=== PATIENT | male | born 1955 | race Caucasian/White ===

== ENCOUNTER → 2024-02-08 | Outpatient (CLI) | payer OTHER, SELFPAY ==
--- NOTE | 2024-02-08 07:13 | ECHOCS_ITS ---
Reason For Study: HTN Procedure This was a 2D Doppler, Color Flow transthoracic echocardiogram. The study was technically difficult. Contrast injection was performed. Exam performed in department. Left Ventricle Normal LV size. Left ventricular systolic function is normal. The left ventricular ejection fraction is 70 %. Stage 1 diastolic dysfunction. No regional wall motion abnormalities noted. Right Ventricle Normal RV size. Normal systolic function. Atria Normal left atrium. Normal right atrium. Mitral Valve Normal mitral valve. Tricuspid Valve Normal tricuspid valve. Aortic Valve Trisinus/trileaflet aortic valve. Pulmonic Valve Normal pulmonic valve. Great Vessels Normal aortic root. The pulmonary artery is normal size. Normal inferior vena cava. Pericardium/Pleural No pericardial effusion. Medication Diluted definity 1ml given slow IV push to enhance endocardial definition. Performed a rapid injection of agitated mix of 9 cc saline and 1cc air to assess for atrial septal defect. MMode/2D Measurements & Calculations LVIDd: 4.6 cm IVSd: 1.1 cm LVOT diam: 1.9 cm LVIDs: 3.1 cm LVPWd: 1.1 cm RVDd: 3.4 cm FS: 33.0 % LVOT area: 2.8 cm2 Ao root diam: 3.8 cm LAV(MOD-bp): 53.4 ml LVAd ap4: 38.4 cm2 LAV(MOD-bp) Indexed: 28.0 ml/m2 LVLd ap4: 9.2 cm LAV(MOD-sp2): 57.1 ml EDV(MOD-sp4): 133.4 ml LAV(MOD-sp4): 44.8 ml EDV(sp4-el): 135.9 ml LVAs ap4: 18.6 cm2 LVLs ap4: 7.4 cm ESV(MOD-sp4): 39.4 ml ESV(sp4-el): 39.5 ml EF(MOD-sp4): 70.4 % EF(sp4-el): 70.9 % SV(MOD-sp4): 94.0 ml SV(sp4-el): 96.4 ml LA A4 area: 17.5 cm2 LA dimension(2D): 3.5 cm RA A4 area: 15.6 cm2 TAPSE: 2.0 cm Time Measurements MV dec time: 0.21 sec Doppler Measurements & Calculations MV E max keagan: 81.6 cm/sec Lat Peak E' Keagan: 13.4 cm/sec Med Peak E' Keagan: 11.1 cm/sec MV A max keagan: 94.3 cm/sec E/E' lat: 6.1 E/E' med: 7.3 MV E/A: 0.87 MV V2 max: 99.4 cm/sec MV dec slope: 387.8 cm/sec2 Ao V2 max: 195.5 cm/sec MV max P.9 mmHg Ao max P.3 mmHg MV V2 mean: 71.4 cm/sec Ao V2 mean: 135.3 cm/sec MV mean P.2 mmHg Ao mean P.3 mmHg MV V2 VTI: 32.3 cm Ao V2 VTI: 44.4 cm MVA(VTI): 2.6 cm2 AV (velocity ratio): 0.69 EVANGELINA(I,D): 1.9 cm2 EVANGELINA(V,D): 1.7 cm2 LV V1 max: 121.4 cm/sec SV(LVOT): 84.8 ml PA V2 max: 97.7 cm/sec LV V1 max P.9 mmHg PA V2 mean: 75.6 cm/sec LV V1 mean P.6 mmHg LV V1 mean: 90.8 cm/sec LV V1 VTI: 30.8 cm ECHO/Echo Complete W/ Contrast Interpretation Summary Normal LV size. Left ventricular systolic function is normal. The left ventricular ejection fraction is 70 %. Stage 1 diastolic dysfunction. Contrast injection was performed. Ordering Physician: Aditya Valadez Referring Physician: Aditya Valadez Performed By: Tarsha Browning RCS
--- NOTE | 2024-02-08 16:18 | STRESSREP_ITS ---
Stress Test Report Exercise myocardial perfusion stress test. 68-year-old man with a history of chest pain Stress protocol: Resting EKG demonstrates normal sinus rhythm with a rate of 65 bpm resting blood pressure is 140/72 mmHg. The patient exercised according to the regular [facility] protocol for a total duration of 8 minutes attaining a maximum heart rate of 144 bpm which was 94% of maximum predicted heart rate; the maximum workload was 10.1 metabolic equivalents. At rest there were no ST or T wave changes noted to suggest ischemia and at peak exercise upsloping ST changes only were noted which did not meet the criteria for ischemia. No clinical angina was noted the test was terminated due to the target heart rate being achieved/fatigue. The peak b lood pressure was 184/70 mmHg. Rate-pressure product was 25,500. Myocardial perfusion protocol. 14.1 mCi of technetium 99m sestamibi was injected at rest. The patient exercised according to regular [facility] protocol for total duration of 8 minutes and at peak exercise 43.8 mCi of technetium 99m sestamibi was injected stress images were obtained stress and rest images were reconstructed in comparing the short axis vertical long and horizontal long axis. Gated images were also obtained. Perfusion SPECT analysis: Review of the stress images demonstrate normal uptake of tracer noted in all areas of the myocardium. The resting images similarly demonstrate normal uptake of tracer noted in all areas of the myocardium. No areas of reversibility are noted to suggest ischemia no previous infarct was noted. Gated SPECT analysis: The gated ejection fraction is 73%. Conclusion: Normal exercise myocardial perfusion stress test at a high workload Preserved ejection fraction.
== END | disposition home or self-care (01) ==
LOC: CVS 07:10
PROVIDERS: PCP Nurse Practitioner Family; Referring Provider Internal Medicine Cardiovascular Disease; Visit Provider Internal Medicine Cardiovascular Disease
DX: I10 Essential (primary) hypertension (principal); R07.9 Chest pain, unspecified
CPT/HCPCS: 78452; 93017; 93306; A9500; Q9957; A4216; C8929

== ENCOUNTER 2024-02-11 07:07 | Outpatient (CLI) | payer OTHER, SELFPAY ==
--- NOTE | 2024-02-11 07:12 | CT_ITS ---
STUDY: CT CHEST T ABDOMEN WITHOUT CONTRAST REASON FOR EXAM: Male, 68 years old. Mixed hyperlipidemia RADIATION DOSAGE (If Supplied By Facility): CTDIvol = ( 12.19 ) mGy, DLP = ( 243.79 ) mGycm TECHNIQUE: Transaxial imaging was performed without the administration of intravenous contrast material. Cardiac over read examination. Individualized dose optimization techniques were used for this CT. COMPARISON: No relevant priors. FINDINGS: CHEST The lungs are normal. There is no demonstrated pleural abnormality. There are calcifications of the coronary arteries. There are small lymph nodes within the mediastinum, which are normal in size and morphology most compatible with reactive lymph hyperplasia. Normal hilar regions. Normal unenhanced pulmonary arteries. Normal aorta arch and descending thoracic aorta. There are mild degenerative changes of the thoracic spine. There is no demonstrated abnormality of the visualized upper abdomen. CT/Limited Chest CT Cardiac Only IMPRESSION: Coronary artery calcification. Small benign-appearing mediastinal lymph nodes. Electronically Signed: Anton Roland MD at 9:32 EDT ,
--- OUTSIDE RECORDS SUMMARY | 2024-02-11 07:12 | XMS RPT_ITS | CCD ---
Author Organization [facility] Care Team Providers Care Industrial Robotics Mechanic Name Role Phone Micky Loaiza Unavailable Unavailable Micky Loaiza Unavailable Unavailable Bev Arnold Unavailable Unavailable Gutierrez, Manisha Damon Unavailable Unavailable Bev Arnold Unavailable Unavailable Gutierrez, Manisha Damon Unavailable Unavailable Gutierrez, Manisha Damon Unavailable Unavailable Gutierrez, Manisha Damon Unavailable Unavailable Bev Arnold Unavailable Unavailable HellingerAdelita Admitting Unavailable HellingAdelita howard Attending Unavailable Bev Arnold Primary Care Unavailable Bev Arnold Admitting Unavailable Bev Arnold Attending Unavailable Bev Arnold Primary Care Unavailable Adelita Priest Admitting Unavailable HellingAdelita howard Attending Unavailable Bev Arnold Primary Care Unavailable MoomawDong Admitting Unavailable MoomawUgoDong Attending Unavailable Bev Arnold Primary Care Unavailable GutierrezManisha Admitting Unavailable GutierrezManisha Attending Unavailable Bev Arnold Primary Care Unavailable RASTAFARIAN UROLOGY PROCEDURE , [id number] Unava ilable Unavailable Manisha Gutierrez II Unavailable Unavailable Unavailable Unavailable Unavailable Unavailable Primary Care Provider Adelita Hammonds CNP Primary Care Provider Adelita Priest CNP Unavailable Adelita Priest Unavailable Unavailable Unavailable Unavailable Unavailable Ms. Adelita Priest Primary Care Unavail able Obed ANGLIN, Dr. Manisha Tidwell Attending UnavaADELITA Pichardo Primary Care Unavailable DANA DURBIN Attending Unavailab MD MANISHA Weston Referring UnavailSAPNA Acosta Primary Care Unavail able MD MANISHA GUTIERREZ Attending Unavailabl e HELLINGER, SAPNA ADELITA HAWKINS Primary Care Unavail able Alfred, Dr. Micky West Attending Unavail able Alfred, Dr. Micky West Referring Unavail able HELLINGER, SAPNA ADELITA NEW Primary Care Unavail able HELLINGER, SITE ACQUISITION MANAGER ADELITA HAWKINS Referring Unavail able Simon, Dr. Micky West Attending Unavail able Hellinger SAPNAAdelita Mata Primary Care Provider Hellinger SAPNAAdelita Mata Unavailable CEM ADELTIA L. Primary Care Unavailable DURBIN, JAGPRIT PINEDA Referring Unavailab le DURBIN, JAGPRIT PINEDA Attending Unavailab le SKYLARER ADELITA Mata Attending Unavailable RICLINGER ADELITA Mata Primary Care Unavailable [facility] ADELITA Mata Referring Unavailable [facility] Primary Care Unavailable VIRGINIA SIMMONS Attending Unava ilable VIRGINIA SIMMONS Admitting Unava ilable Unavailable Primary Care Provider Unavailabl e [facility] Adelita Raul Primary Care Provide r [facility]elling[facility] Adelita Raul Primary Care Provide r Hellinger [employer] [facility] Adelita [facility] Primary Care Provider ODELL ORDAZ II Attending Unavailabl e CEM FANNIE NEW Primary Care Unavailable IMMANUEL ORDAZ Referring Unavailabl e IMMANUEL ORDAZ Attending Unavailabl e GRANT HOSPITALLINGFANNIE Primary Care Unavailable ODELL ORDAZ II Attending Unavailabl e RUI MCKEON Attending Unavailable BEV OMRRIS Referring Unavailable HELLINGERADELITA Primary Care Unavailable RUI MCKEON Referring Unavailable GRANT HOSPITALLINGERADELITA Primary Care Unavailable TINO PAYAN Attending Unavailable CHRISTOPH BERRY Referring Unavailable CHRISTOPH BERRY Attending Unavailable HELLINGER ADELITA Primary Care Unavailable GRANT HOSPITALLINGER, ADELITA L Primary Care Unavailable HELLINGER, ADELITA L Primary Care Unavailable MANISHA GUTIERREZ Referring Unavailable HELLINGER, ADELITA Primary Care Unavailable HELLINGER, ADELITA L Primary Care Unavailable CASEY CAMERON Attending Unavailable MANISHA GUTIERREZ Attending Unavailable ADELITA PRIEST Primary Care Unavailable MANISHA GUTIERREZ Attending Unavailable ADELITA PRIEST Primary Care Unavailable Adelita Priest CNP Primary Care Provider Adelita Priest CNP Unavailable Fatoumata Ramos MD Unavailable FATOUMATA RAMOS Attending Unavailable ADELITA PRIEST Referring Unavailable ADELITA PRIEST Primary Care Unavailable ADELITA PRIEST Admitting Unavailable Allergies Allergy Classification Reported Allergen(s) Allergy Type Date of Onset Reaction(s) Facility (20 sources) Penicillins; Translations: [penicillins] Propensity to adverse reactions to drug (disorder) 5 [facility] (18 sources) Cephalexin; Translations: [cephalexin] Drug Allergy 4 [facility] (4 sources) Penicillin; Translations: [PENICILLIN] Drug Allergy 6 [facility] (2 sources) Polymyxin B / Trimethoprim; Translations: [POLYMYXIN B SULF-TRIMETHOPR IM] Drug Allergy 4 Other: See [facility] Medications Current Medications Medication Drug Class(es) Dates Sig (Normalized) Sig (Original) [id number] 200 actuat albuterol 0.09 mg/actuat metered dose inhaler (20 sources) beta2-Adrenergic Agonist take 1 puff(s) by inhalation every six hours as needed for wheezing albuterol 90 mcg/actuation inhaler Inhale 1 (one) puff every 6 (six) hours as needed for wheezing . Active Albuterol Sulfat e HFA 108 (90 Base) MCG/ACT Inhalation Aerosol Solution Quantity: 0 Refills: 0 Ordered: 25-May-2019 DO Active Albuterol Sulfat e HFA 108 (90 Base) MCG/ACT Inhalation Aerosol Solution Quantity: 0 Refills: 0 Ordered: 25-May-2019 DO Active atorvastatin 10 mg oral tablet (20 sources) HMG-CoA Reductase Inhibitor take 1 tablet by mouth once daily atorvastatin (LIPITOR) 10 MG tablet Take 1 (one) tablet (10 mg total) by mouth daily . Active ATORVASTATIN SHANICE CIUM (ATORVASTATIN ORAL) Take by mouth. 0 Active Atorvastatin Shanice cium TABS Quantity: 0 Refills: 0 Ordered: 25-May-2019 DO Active Atorvastatin Shanice cium TABS Refills: 0 Active Comment on above: Take by mouth. cetirizine hydrochloride 10 mg oral tablet (7 sources) Histamine-1 Receptor Antagonist cetirizine (ZYRTEC) 10 MG tablet Take by mouth daily . Active CETIRIZINE HCL ( ZYRTEC ORAL) Take by mouth. 0 Active Comment on above: Take by mouth. dexamethasone 1 mg/ml / tobramycin 3 mg/ml ophthalmic suspension (1 source) Aminoglycoside Antibacterial, Corticosteroid Start: 09-30-19 End: 10-07-19 take 1 drop(s) into the eye(s) four times daily tobramycin-dexAMETH asone (TOBRADEX) 0.3-0.1 % ophthalmic suspension Use 1 Drop in both eyes four times daily for 7 days. 5 mL 0 09/30/2023 10/07/2023 Active fluticasone propionate 0.05 mg/actuat metered dose nasal spray (13 sources) Corticosteroid take 2 spray(s) nasal route once daily fluticasone propionate (FLONASE) 50 mcg/actuation nasal spray Instill 2 (two) sprays into each nostril daily . Active take 1 spray(s) nasal route once daily fluticasone (FLONASE) 50 mcg/actuation nasal spray Use 1 [place] in each nostril once daily. 0 Active fluticasone 50 M CG/ACT Suspension nasal spray 2 sprays by Nasal route daily. Active Comment on above: Use 1 [place] in each nostril once daily. hydroCHLOROthiazide 25 mg oral tablet (1 source) Thiazide Diuretic Start: 2023 take 1 tablet by mouth once daily hydroCHLOROthiazide (HYDRODIURIL) 25 MG tablet Take 1 (one) tablet (25 mg total) by mouth daily . 01/20/2024 Active lisinopril 20 mg oral tablet (20 sources) Angiotensin Converting Enzyme Inhibitor Start: 2023 lisinopril 20 mg tablet LISINOPRIL ORAL Take by mouth . Active LISINOPRIL ORAL Take by mouth. 0 Active Lisinopril TABS Quantity: 0 Refills: 0 Ordered: 25-May-2019 DO Active LISINOPRIL ORAL Take by mouth . 0 Active Lisinopril TABS Refills: 0 Active Comment on above: Take by mouth. magnesium citrate 45 mg / magnesium oxide 45 mg / potassium citrate 49.5 mg / pyridoxine hydrochloride 3.75 mg extended release oral tablet (1 source) vit B6-mag cit,oxid-potass cit (Theralith XR) 3.75-45-45-49.5 mg TbER Take by mouth 2 (two) times a day . Active methylPREDNISolone (1 source) Corticosteroid Start : 01-24 End: 01-31 methylPREDNISolone (MEDROL DOSEPACK) 4 mg tablet follow package directions . 21 tablet 0 01/24/2021 01/31/2021 Active Nutritional Supplements (TheraLith XR) tablet (2 sources) Nutritional Supp lements (TheraLith XR) tablet Take by mouth 2 times daily. Active sildenafil 100 mg oral tablet (1 source) Phosphodiesterase 5 Inhibitor Start : 08-18 take 1 tablet by mouth once daily at bedtime sildenafiL (VIAGRA) 100 MG tablet Take 1 (one) tablet (100 mg total) by mouth every night at bedtime . 08/19/2023 Active tropicamide 5 mg/ml ophthalmic solution (1 source) Anticholinergic Start : 04-22 End: 04-22 tropicamide 0.5 % 1 Drop (MYDRIACYL) vitB6/mag cit,ox/potassium cit (THERALITH XR ORAL) (4 sources) vitB6/mag cit,ox/potassium cit (THERALITH XR ORAL) Take by mouth . Active vitB6/mag cit,ox /potassium cit (THERALITH XR ORAL) Take by mouth . 0 Active Completed/Discontinued Medications Medication Drug Class(es) Dates Sig (Normalized) Sig (Original) betamethasone 0.5 mg/ml / clotrimazole 10 mg/ml topical cream (3 sources) Azole Antifungal, Corticosteroid Start: 06-08-2019 Clotrimazole-Bet amethasone 1-0.05 % External Cream APPLY SPARINGLY TO THE AFFECTED AREA(S) TWICE DAILY. Quantity: 45 Refills: 0 Ordered: 08-Jun-2019 Manisha Gutierrez II, MD Start : 08-Jun-2019 Active Start: 06-08-2019 Clotrimazole-B etamethasone 1-0.05 % External Cream APPLY SPARINGLY TO THE AFFECTED AREA(S) TWICE DAILY. Quantity: 45 Refills: 0 Manisha Gutierrez II, MD Start : 08-Jun-2019 Active 45 GM Tube ciprofloxacin 500 mg oral tablet (1 source) Quinolone Antimicrobial Start: 05-28-2020 take 1 tablet by mouth twice daily Ciprofloxacin HCl - 500 MG Oral Tablet Take 1 tablet twice daily Quantity: 6 Refills: 0 Manisha Gutierrez II, MD Start : 28-May-2020 Active doxycycline hyclate 100 mg oral tablet (2 sources) Tetracycline-class Drug Start: 08-12-2021 Doxycycline Hyclate 100 MG Oral Tablet Quantity: 14 Refills: 0 Ordered: 12-Aug-2021 DO Start : 12-Aug-2021 Complete Gadobutrol (GADAVIST) 1 MMOL/ML injection 1-30 mL (1 source) Start: 09-25-2023 End: 09-25-2023 1-30 mL, Intravenous, ONCE, 1 dose, On Thu09/25/23 at 1330, Extravasation Risk mupirocin 0.02 mg/mg topical ointment (2 sources) RNA Synthetase Inhibitor Antibacterial Start: 08-12-2021 Mupirocin 2 % External Ointment Quantity: 22 Refills: 0 Ordered: 12-Aug-2021 DO Start : 12-Aug-2021 Complete naproxen 500 mg oral tablet (2 sources) Nonsteroidal Anti-inflammatory Drug Start: 01-30-2021 Naproxen 500 MG Oral Tablet Quantity: 20 Refills: 0 Ordered: 30-Jan-2021 DO Start : 30-Jan-2021 Complete polymyxin b 36821 unt/ml / trimethoprim 1 mg/ml ophthalmic solution (2 sources) Dihydrofolate Reductase Inhibitor Antibacterial, Polymyxin-class Antibacterial Start: 09-28-2023 End: 10-05-2023 take 1 drop(s) into the eye(s) four times daily trimethoprim-polym yxin (POLYTRIM) 10,000 unit- 1 mg/mL ophthalmic solution Use 1 Drop in the left eye four times daily for 7 days. 10 mL 0 09/28/2023 09/30/2023 Discontinued (Clinical Decision) tamsulosin hydrochloride 0.4 mg oral capsule (2 sources) alpha-Adrenergic Topher Start: 07-09-2020 take 1 capsule by mouth at bedtime Tamsulosin HCl - 0.4 MG Oral Capsule TAKE 1 CAPSULE Bedtime Quantity: 30 Refills: 6 Ordered: 09-Jul-2020 Manisha Gutierrze II, MD Start : 09-Jul-2020 Active TheraLith XR Oral Tablet (1 source) TheraLith XR Ora l Tablet Refills: 0 Active TheraLith XR Oral Tablet (9 sources) TheraLith XR Ora l Tablet Quantity: 0 Refills: 0 Ordered: 08-Jun-2019 DO Active Problems Active Problems Problem Classification Problem Date Documented Date Episodic/Chronic Cataract (4 sources) Bilateral senile combined form cataracts of eyes; Translations: [Combined forms of age-related cataract, bilateral] Onset: 06-06-19 18 04-22-2023 Chronic Disorders of lipid metabolism (2 sources) Mixed hyperlipidemia; Translations: [Mixed hyperlipidemia] Onset: 11-27-19 Chronic Essential hypertension (4 sources) Essential (primary) hypertension; Translations: [Essential (primary) hypertension] Onset: 08-03-19 Chronic Genitourinary symptoms and ill-defined conditions (20 sources) Blood in urine; Translations: [Nocturia] Onset: 06-19-19 24 06-19-2023 Episodic Hyperplasia of prostate (16 sources) Benign prostatic hypertrophy without outflow obstruction; Translations: [Hypertrophy (benign) of prostate without urinary obstruction and other lower urinary tract symptom (LUTS)] Onset: 06-19-19 24 06-24-2023 Chronic Inflammation; infection of eye (except that caused by tuberculosis or sexually transmitteddisease) (3 sources) Keratoconjunctivitis sicca; Translations: [Keratoconjunctivitis sicca, not specified as Sjogren's, bilateral] Onset: 07-07-19 16 07-07-2015 Chronic Inflammation; infection of eye (except that caused by tuberculosis or sexually transmitteddisease) (2 sources) Conjunctivitis of left eye caused by bacteria; Translations: [Unspecified conjunctivitis] 09-28-2023 Episodic Miscellaneous mental health disorders (2 sources) Psychophysiologic insomnia; Translations: [Psychophysiologic insomnia] Onset: 11-27-19 Chronic Osteoarthritis (4 sources) [place] node; Translations: [Osteoarthrosis, generalized, hand] Chronic Other connective tissue disease (2 sources) Pain in left foot; Translations: [Pain in left foot] Episodic Other connective tissue disease (2 sources) Peroneal tendinitis of left lower limb; Translations: [Peroneal tendinitis, left leg] Episodic Other eye disorders (1 source) Bilateral vitreous floaters; Translations: [Other vitreous opacities, bilateral] 04-22-2023 Chronic Other male genital disorders (16 sources) Male erectile dysfunction, unspecified; Translations: [Erectile dysfunction] Onset: 06-19-1906-24-2023 Chronic Other male genital disorders (13 sources) Irritation of penis; Translations: [Other specified disorders of penis] Onset: 06-19-1906-19-2023 Chronic Other nutritional; endocrine; and metabolic disorders (3 sources) Obese class I; Translations: [Obesity, unspecified] Onset: 08-03-1908-03-2023 Chronic Other nutritional; endocrine; and metabolic disorders (2 sources) Obesity, unspecified; Translations: [Obesity, unspecified] Onset: 08-03-19 Chronic Other skin disorders (3 sources) Nailbed deformity; Translations: [Unspecified disease of nail] Episodic Phlebitis; thrombophlebitis and thromboembolism (6 sources) Phlebitis and thrombophlebitis of superficial vessels of right lower extremity; Translations: [Thrombophlebitis of superficial vein of right lower limb] Onset: 12-07-19 Episodic Residual codes; unclassified (1 source) FH: Cardiomyopathy; Translations: [Family history of ischemic heart disease and other diseases of the circulatory system] 09-08-2022 Episodic Residual codes; unclassified (4 sources) Family history of ischemic heart disease and other diseases of the circulatory system; Translations: [Family history of ischemic heart disease and other diseases of the circulatory system] Onset: 09-09-19 Episodic Residual codes; unclassified (1 source) FH: Cardiomyopathy; Translations: [Family history of ischemic heart disease and other diseases of the circulatory system] 09-25-2023 Episodic Residual codes; unclassified (2 sources) Localized edema; Translations: [Localized edema] Onset: 12-07-19 Episodic Past or Other Problems Problem Classification Problem Date Documented Da te Episodic/Chronic Blindness and vision defects (12 sources) Bilateral hyperopia of eyes; Translations: [Hypermetropia, bilateral] Onset: 07-07-2015 04-22-2023 Episodic Calculus of urinary tract (20 sources) History of calculus of kidney; Translations: [Kidney stone] Onset: 04-30-2022 Episodic Other and unspecified benign neoplasm (5 sources) Lipoma of trunk; Translations: [Benign lipomatous neoplasm of skin and subcutaneous tissue of trunk] Onset: 04-18-2021 Episodic Other and unspecified benign neoplasm (5 sources) Lipoma of abdominal wall; Translations: [Benign lipomatous neoplasm of skin and subcutaneous tissue of trunk] Onset: 04-18-2021 Episodic Other and unspecified benign neoplasm (5 sources) Lipoma of left lower limb; Translations: [Benign lipomatous neoplasm of skin and subcutaneous tissue of left leg] Onset: 04-18-2021 Episodic Other connective tissue disease (4 sources) Other specified soft tissue disorders; Translations: [Other specified soft tissue disorders] Onset: 05-23-2022 Episodic Other connective tissue disease (2 sources) Digital mucous cyst Onset: 05-02-2022 Episodic Other gastrointestinal disorders (4 sources) Disorder of flank; Translations: [Intra-abdominal and pelvic swelling, mass and lump, unspecified site] Onset: 04-18-2021 Episodic Other gastrointestinal disorders (2 sources) Abdominal mass; Translations: [Intra-abdominal and pelvic swelling, mass and lump, unspecified site] Onset: 04-18-2021 04-18-2021 Episodic Other screening for suspected conditions (not mental disorders or infectious disease) (18 sources) Raised prostate specific antigen; Translations: [Elevated prostate specific antigen [PSA]] Onset: 06-19-2023 06-24-2023 Episodic Unclassified (3 sources) Onset: 06-24-2023 06-24-2023 NEGATED: Highlighted row has not occurred!Residual codes; unclassified (3 sources) Disease Episodic Results Test Name Value Interpretation Reference Range Facility VASC US LOWER EXTREMITY VENO US DUPLEX RIGHTon 12-07-2023 VAS US LOWER EXTREMITY [place] [address] [phone], Vascular Lab Report VAS US LOWER EXTREMITY VENOUS DUPLEX RIGHT Patient Name: WALLY Rossi Physician: [id number] Grant Toro MD Study Date: 12/07/2023 Ordering Provider: [id number] CASEY CAMERON MRN/PID: [id number] Fellow: Technologist: Kelly Osei RVT/ Date of /Age: 1 1955 / 68 years Technologist 2: Gender: M Admission Status: Emergency Location Performed: [facility] Diagnosis/ICD: Localized (leg) edema-R60.0 CRITICAL RESULT Critical Result: superficial venous thrombosis of right calf GSV Notification called to Dr. Green on 12/07/2023 at 12:21:44 PM by Kelly Osei RVT. CONCLUSIONS: Right Lower Venous: No evidence of acute deep vein thrombus visualized in the right lower extremity. There is acute occlusive thrombosis visualized in the mid calf great saphenous. Left Lower Venous: The left common femoral vein demonstrates normal spontaneous and respirophasic flow. Imaging & Doppler Findings: Right Compress Thrombus Prox Calf GSV Yes None Mid Calf GSV No Acute Dist Calf GSV No Acute Right Compressible Thrombus Flow Distal External Iliac Yes None Spontaneous/Phasic CFV Yes None Spontaneous/Phasic PFV Yes None FV Proximal Yes None Spontaneous/Phasic FV Mid Yes None FV Distal Yes None Popliteal Yes None Spontaneous/Phasic Peroneal Yes None PTV Yes None [id number] Grant Toro MD Final Normal [facility] CBC panel Auto (Bld)on 11-29 Erythrocyte distribution width (RBC) [Ratio] 13.5 % Normal 11.5-14.5 [facility] Comment on above: Performed By: #### 5 8410-2 #### ELVIS LOPEZ ([id number]) [facility] ([facility]) [address] [place] [address] 83705 Hematocrit (Bld) [Volume fraction] 48.5 % Normal 41.0-52.0 [facility] Comment on above: Performed By: #### 5 8410-2 #### ELVIS LOPEZ ([id number]) [facility] ([facility]) [address] [place] [address] 37973 Hemoglobin (Bld) [Mass/Vol] 15.3 g/dL Normal 13.5-17.5 [facility] Comment on above: Performed By: #### 5 8410-2 #### ELVIS LOPEZ ([id number]) [facility] ([facility]) [address] [place] [address] 45370 MCH (RBC) [Entitic mass] 30.2 pg Normal 26.0-34.0 [facility] Comment on above: Performed By: #### 5 8410-2 #### ELVIS LOPEZ ([id number]) [facility] ([facility]) [address] [place] [address] 85245 MCHC (RBC) [Mass/Vol] 31.5 g/dL Low 32.0-36.0 [facility] Comment on above: Performed By: #### 5 8410-2 #### ELVIS LOPEZ ([id number]) [facility] ([facility]) [address] [place] [address] 33065 MCV (RBC) [Entitic vol] 96 fL Normal 80-100 [facility] Comment on above: Performed By: #### 5 8410-2 #### ELVIS LOPEZ ([id number]) [facility] ([facility]) [address] [place] [address] 81567 Nucleated RBC/100 WBC (Bld) [Ratio] 0.0 /100 WBCs Normal 0.0-0.0 [facility] Comment on above: Performed By: #### 5 8410-2 #### ELVIS LOPEZ ([id number]) [facility] ([facility]) [address] [place] [address] 99676 Platelets (Bld) [#/Vol] 229 x10*3/uL Normal 150-450 [facility] Comment on above: Performed By: #### 5 8410-2 #### ELVIS LOPEZ ([id number]) [facility] ([facility]) [address] [place] [address] [phone] RBC (Bld) [#/Vol] 5.06 x10*6/uL Normal 4.50-5.90 [facility] Comment on above: Performed By: #### 5 8410-2 #### ELVIS LOPEZ ([id number]) [facility] ([facility]) [address] [place] [address] WBC (Bld) [#/Vol] 5.8 x10*3/uL Normal 4.4-11.3 [facility] Comment on above: Performed By: #### 5 8410-2 #### ELVIS LOPEZ ([id number]) [facility] ([facility]) [address] [place] [address] Comprehensive metabolic 2000 panelon 11-30-2023 Albumin BCP dye [Mass/Vol] 4.4 g/dL Normal 3.4-5.0 [facility] Comment on above: Performed By: #### 2 4323-8 #### ELVIS LOPEZ ([id number]) [facility] ([facility]) [address] [place] [address] ALP [Catalytic activity/Vol] 60 U/L Normal 33-136 [facility] Comment on above: Performed By: #### 2 4323-8 #### ELVIS LOPEZ ([id number]) [facility] ([facility]) [address] [place] [address] ALT With P-5'-P [Catalytic activity/Vol] 22 U/L Normal 10-52 [facility] Comment on above: Result Comment: Clair ents treated with Sulfasalazine may generate falsely decreased results for ALT. Performed By: #### 2 4323-8 #### ELVIS LOPEZ ([id number]) [facility] ([facility]) [address] [place] [address] Anion gap [Moles/Vol] 11 mmol/L Normal 10-20 [facility] Comment on above: Performed By: #### 2 4323-8 #### ELVIS LOPEZ ([id number]) [facility] ([facility]) [address] [place] [address] AST With P-5'-P [Catalytic activity/Vol] 16 U/L Normal 9-39 [facility] Comment on above: Performed By: #### 2 4323-8 #### ELVIS LOPEZ ([id number]) [facility] ([facility]) [address] [place] [address] Bilirubin [Mass/Vol] 0.8 mg/dL Normal 0.0-1.2 [facility] Comment on above: Performed By: #### 2 4323-8 #### ELVIS LOPEZ ([id number]) [facility] ([facility]) [address] [place] [address] 78182 Calcium [Mass/Vol] 9.3 mg/dL Normal 8.6-10.3 [facility] Comment on above: Performed By: #### 2 4323-8 #### ELVIS LOPEZ ([id number]) [facility] ([facility]) [address] [place] [address] 33598 Chloride [Moles/Vol] 104 mmol/L Normal 98-107 [facility] Comment on above: Performed By: #### 2 4323-8 #### ELVIS LOPEZ ([id number]) [facility] ([facility]) [address] [place] [address] 97852 CO2 [Moles/Vol] 28 mmol/L Normal 21-32 [facility] Comment on above: Performed By: #### 2 4323-8 #### ELVIS LOPEZ ([id number]) [facility] ([facility]) [address] [place] [address] 01058 Creatinine [Mass/Vol] 0.96 mg/dL Normal 0.50-1.30 [facility] Comment on above: Performed By: #### 2 4323-8 #### ELVIS LOPEZ ([id number]) [facility] ([facility]) [address] [place] [address] 13522 Glomerular filtration rate/1.73 sq M.predicted 87 mL/min/1.73m*2 Normal >60 [facility] Comment on above: Result Comment: Calc ulations of estimated GFR are performed using the 2020 CKD-EPI Study Refit equation without the race variable for the IDMS-Traceable creatinine methods. https://jasn.asnjournals.org/content//ASN.298739702 8 Performed By: #### 2 4323-8 #### ELVIS LOPEZ ([id number]) [facility] ([facility]) [facility] [place] [address] Glucose [Mass/Vol] 92 mg/dL Normal 74-99 [facility] Comment on above: Performed By: #### 2 4323-8 #### ELVIS LOPEZ ([id number]) [facility] ([facility]) [facility] [place] [address] Potassium [Moles/Vol] 4.4 mmol/L Normal 3.5-5.3 [facility] Comment on above: Performed By: #### 2 4323-8 #### ELVIS LOPEZ ([id number]) [facility] ([facility]) [address] [place] [address] 71717 Protein [Mass/Vol] 6.1 g/dL Low 6.4-8.2 [facility] Comment on above: Performed By: #### 2 4323-8 #### ELVIS LOPEZ ([id number]) [facility] ([facility]) [address] [place] [address] 06923 Sodium [Moles/Vol] 139 mmol/L Normal 136-145 [facility] Comment on above: Performed By: #### 2 4323-8 #### ELVIS LOPEZ ([id number]) [facility] ([facility]) [address] [place] [address] 49709 Urea nitrogen [Mass/Vol] 15 mg/dL Normal 6-23 [facility] Comment on above: Performed By: #### 2 4323-8 #### ELVIS LOPEZ ([id number]) [facility] ([facility]) [address] [place] [address] 04085 Lipid 1996 panelon 4 Cholesterol [Mass/Vol] 160 mg/dL Normal 0-199 [facility] Comment on above: Result Comment: Age Desirable Borderline High High 0-19 Y 0 - 169 170 - 199 >/= 200 20-24 Y 0 - 189 190 - 224 >/= 225 >24 Y 0 - 199 200 - 239 >/= 240 All ranges are based on fasting samples. Specific therapeutic targets will vary based on patient-specific cardiac risk. Pediatric guidelines reference:Pediatrics 2011, 128(S5).Adult guidelines reference: NCEP ATPIII Guidelines,PB 2001, 258:2486-97 Venipuncture immediately after or during the administration of Metamizole may lead to falsely low results. Testing should be performed immediately prior to Metamizole dosing. Performed By: #### 2 4331-1 #### ELVIS LOPEZ ([id number]) [facility] ([facility]) [address] [place] [address] 22327 Cholesterol in HDL [Mass/Vol] 48.0 mg/dL Normal [facility] Comment on above: Result Comment: Age Very Low Low Normal High 0-19 Y < 35 < 40 40-45 ---- 20-24 Y ---- < 40 >45 ---- >24 Y ---- < 40 40-60 >60 Performed By: #### 2 4331-1 #### ELVIS LOPEZ ([id number]) [facility] ([facility]) [address] [place] [address] 89710 Cholesterol in LDL [Mass/Vol] 88 mg/dL Normal <=99 [facility] Comment on above: Result Comment: Near Borderline AGE Desirable Optimal High High Very High 0-19 Y 0 - 109 --- 110-129 >/= 130 ---- 20-24 Y 0 - 119 --- 120-159 >/= 160 ---- >24 Y 0 - 99 100-129 130-159 160-189 >/=190 Performed By: #### 2 4331-1 #### ELVIS LOPEZ ([id number]) [facility] ([facility]) [address] [place] [address] 92128 Cholesterol in VLDL [Mass/Vol] 24 mg/dL Normal 0-40 [facility] Comment on above: Performed By: #### 2 4331-1 #### ELVIS LOPEZ ([id number]) [facility] ([facility]) [address] [place] [address] 92731 CHOLESTEROL/HDL RATIO 3.3 Normal [facility] Comment on above: Result Comment: Ref Values Desirable < 3.4 High Risk > 5.0 Performed By: #### 2 4331-1 #### ELVIS LOPEZ ([id number]) [facility] ([facility]) [address] [place] [address] 64372 NON HDL CHOLESTEROL 112 mg/dL Normal 0-149 [facility] Comment on above: Result Comment: Age Desirable Borderline High High Very High 0-19 Y 0 - 119 120 - 144 >/= 145 >/= 160 20-24 Y 0 - 149 150 - 189 >/= 190 ---- >24 Y 30 mg/dL above LDL Cholesterol goal Performed By: #### 2 4331-1 #### ELVIS LOPEZ ([id number]) [facility] ([facility]) [address] [place] [address] 68638 Triglyceride [Mass/Vol] 120 mg/dL Normal 0-149 [facility] Comment on above: Result Comment: Age Desirable Borderline High High Very High 0 D-90 D 19 - 174 ---- ---- ---- 91 D- 9 Y 0 - 74 75 - 99 >/= 100 ---- 10-19 Y 0 - 89 90 - 129 >/= 130 ---- 20-24 Y 0 - 114 115 - 149 >/= 150 ---- >24 Y 0 - 149 150 - 199 200- 499 >/= 500 Venipuncture immediately after or during the administration of Metamizole may lead to falsely low results. Testing should be performed immediately prior to Metamizole dosing. Performed By: #### 2 4331-1 #### ELVIS LOPEZ ([id number]) [facility] ([facility]) [address] [place] [address] 18684 Magnesiumon 11-30-2023 Magnesium [Mass/Vol] 1.89 mg/dL Normal 1.60-2.40 [facility] Comment on above: Performed By: #### 1 9123-9 #### ELVIS LOPEZ ([id number]) [facility] ([facility]) [address] [place] [address] 74738 Prostate specific Agon 11-29 Prostate specific Ag [Mass/Vol] 1.06 ng/mL Normal <=4.00 [facility] Comment on above: Order Comment: The F DA requires that the method used for PSA assay be reported to the physician. Values obtained with different assay methods must not be used interchangeably. This test was performed at [facility] using the Access QuoVadisbritech PSA assay is a two-site immunoenzymatic sandwich assay. The assay is approved for measurement of prostate-specific antigen (PSA)in serum and may be used in conjunction with a digital rectal examination in men 50 years and older as an aid in detection of prostate cancer. 7-Gxvfd-fbwbyulrv inhibitors (e.g. Proscar, Finasteride, Avodart, Dutasteride and Charlene) for the treatment of BPH have been shown to lower PSA levels by an average of 50% after 6 months of treatment. Performed By: #### 2 857-1 #### LEAL JESSICA ([id number]) [facility] ([facility]) [address] [place] [address] HEMATOCRITon 09-25-2023 Hematocrit (Bld) [Volume fraction] 47.0 % 39.6 - 48.8 % [facility] Interpretation and review of laboratory results Normal [facility] Hematocrit (Bld) [Volume fraction] 47.0 % Normal 39.6-48.8 [facility] Comment on above: Performed By: #### H CT #### [facility] (DEFAULT) [address] [place] [address] MR Heart cine for blood flow velocity mapping W contrast eBni 09-25-2023 [facility] CMR Report Name: WALLY JONES : 1955 Scan Date: 2023-09-25 13:31:38 Electronically signed by Valerie Auguste 14:54:32 VITALS == HEIGHT: 75.00 in (190.50 cm) WEIGHT: 240.00 lbs (108.86 kgs) BSA: 2.37 m^2 BP: 171 / 81 mmHg BASELINE HR: 68 BPM FINAL IMPRESSION == Normal biventricular size and systolic function with mild, nonischemic fibrosis. No specific CMR findings of ARVC. SUMMARY == 68 yo M with HTN, family hx of ARVC. CMR for further evaluation. CARDIAC MRI LEFT VENTRICLE: There is mild basal LV hypertrophy. LV cavity size is normal. LV systolic function is normal. Quantitative LVEF 60 %. No myocardial edema/inflammation by T2 mapping. Normal eastern sh[place] and ECV values. VIABILITY: Late gadolinium enhancement imaging demonstrates mild patchy, midmyocardial LGE in the basal inferior wall and RV insertion. RIGHT VENTRICLE: RV cavity size is normal. RV systolic function is normal. Quantitative RVEF 58 %. No specific CMR findings of ARVC. LEFT ATRIUM: LA cavity size is normal. RIGHT ATRIUM: RA cavity size is normal. PERICARDIUM: There is a trivial pericardial effusion. AORTIC VALVE: Peak aortic valve velocity 1.8 m/sec. There is trivial aortic regurgitation. MITRAL VALVE: There is trivial mitral regurgitation. TRICUSPID VALVE: There is trivial tricuspid regurgitation. CORE EXAM == MEASUREMENTS VOLUMETRIC ANALYSIS . -------. LV Reference RV Reference +------+ +------ + +------+----- -------+ EDV ml 173 (109-191) 167 (105-205) ml/m^2 73 (60-95) 71 (56-101) ESV ml 68 (27-72) 71 (20-80) ml/m^2 29 (14-36) 30 (11-40) CO L/min 6.78 6.28 L/min/m^2 2.86 2.65 MASS g 113 (107-183) g/m^2 48 (57-90) SV ml 104 (73-129) 97 (71-139) ml/m^2 44 (40-64) 41 (37-69) EF % 60 (58-76) 58 (55-81) '------+ +------ + +------+----- -------' CARDIAC OUTPUT HR: 65 BPM LV DIMENSIONS WALL THICKNESS - ANTEROSEPTAL: 0.8 cm WALL THICKNESS - INFEROLATERAL: 0.9 cm WALL THICKNESS - MAXIMUM: 1.3 cm LV LUIS MIGUEL: 4.9 cm LV ESD: 2.5 cm LA DIMENSIONS (LV SYSTOLE) DIAMETER: 4.2 cm AREA - 2 CHAMBER: 24 cm^2 LENGTH - 2 CHAMBER: 5.7 cm AREA - 4 CHAMBER: 27 cm^2 LENGTH - 4 CHAMBER: 6.6 cm VOLUME: 97 ml VOLUME NORMALIZED: 40.8 ml/m^2 RA DIMENSIONS (RV SYSTOLE) AREA - 4 CHAMBER: 19 cm^2 LENGTH - 4 CHAMBER: 5.7 cm EXTRACELLULAR VOLUME MEASUREMENT PRE-CONTRAST T1 MYOCARDIUM: 1000 msec PRE-CONTRAST T1 LV CAVITY: 1571 msec POST-CONTRAST T1 MYOCARDIUM: 399 msec POST-CONTRAST T1 LV CAVITY: 248 msec HEMATOCRIT: 47 % HEMATOCRIT DATE: ECV: 24 % SCAN INFO == GENERAL SCANNER RADIATOR FITTER: Quantine MODEL: FTL SOLAR PULSE SEQUENCES: SSFP cine, 2D LGE segmented, 2D LGE single-shot, Pre-contrast T1 mapping, Post-contrast T1 mapping, T2 mapping, Phase contrast imaging, Fat-water imaging, (more content not included)... CARDIOLOGY Valerie Auguste MD - 09/25/2023 [facility] CMR Report Name: WALLY JONES : 1955 Scan Date: 2023-09-25 13:31:38 Electronically signed by Valerie Auguste 14:54:32 VITALS ===== HEIGHT: 75.00 in (190.50 cm) WEIGHT: 240.00 lbs (108.86 kgs) BSA: 2.37 m^2 BP: 171 / 81 mmHg BASELINE HR: 68 BPM FINAL IMPRESSION ===== Normal biventricular size and systolic function with mild, nonischemic fibrosis. No specific CMR findings of ARVC. SUMMARY ===== 68 yo M with HTN, family hx of ARVC. CMR for further evaluation. CARDIAC MRI LEFT VENTRICLE: There is mild basal LV hypertrophy. LV cavity size is normal. LV systolic function is normal. Quantitative LVEF 60 %. No myocardial edema/inflammation by T2 mapping. Normal [place] and ECV values. VIABILITY: Late gadolinium enhancement imaging demonstrates mild patchy, midmyocardial LGE in the basal inferior wall and RV insertion. RIGHT VENTRICLE: RV cavity size is normal. RV systolic function is normal. Quantitative RVEF 58 %. No specific CMR findings of ARVC. LEFT ATRIUM: LA cavity size is normal. RIGHT ATRIUM: RA cavity size is normal. PERICARDIUM: There is a trivial pericardial effusion. AORTIC VALVE: Peak aortic valve velocity 1.8 m/sec. There is trivial aortic regurgitation. MITRAL VALVE: There is trivial mitral regurgitation. TRICUSPID VALVE: There is trivial tricuspid regurgitation. CORE EXAM ===== MEASUREMENTS VOLUMETRIC ANALYSIS . -------. LV Reference RV Reference +------+ +------ + +------+----- -------+ EDV ml 173 (109-191) 167 (105-205) ml/m^2 73 (60-95) 71 (56-101) ESV ml 68 (27-72) 71 (20-80) ml/m^2 29 (14-36) 30 (11-40) CO L/min 6.78 6.28 L/min/m^2 2.86 2.65 MASS g 113 (107-183) g/m^2 48 (57-90) SV ml 104 (73-129) 97 (71-139) ml/m^2 44 (40-64) 41 (37-69) EF % 60 (58-76) 58 (55-81) '------+ +------ + +------+----- -------' CARDIAC OUTPUT HR: 65 BPM LV DIMENSIONS WALL THICKNESS - ANTEROSEPTAL: 0.8 cm WALL THICKNESS - INFEROLATERAL: 0.9 cm WALL THICKNESS - MAXIMUM: 1.3 cm LV LUIS MIGUEL: 4.9 cm LV ESD: 2.5 cm LA DIMENSIONS (LV SYSTOLE) DIAMETER: 4.2 cm AREA - 2 CHAMBER: 24 cm^2 LENGTH - 2 CHAMBER: 5.7 cm AREA - 4 CHAMBER: 27 cm^2 LENGTH - 4 CHAMBER: 6.6 cm VOLUME: 97 ml VOLUME NORMALIZED: 40.8 ml/m^2 RA DIMENSIONS (RV SYSTOLE) AREA - 4 CHAMBER: 19 cm^2 LENGTH - 4 CHAMBER: 5.7 cm EXTRACELLULAR VOLUME MEASUREMENT PRE-CONTRAST T1 MYOCARDIUM: 1000 msec PRE-CONTRAST T1 LV CAVITY: 1571 msec POST-CONTRAST T1 MYOCARDIUM: 399 msec POST-CONTRAST T1 LV CAVITY: 248 msec HEMATOCRIT: 47 % HEMATOCRIT DATE: ECV: 24 % SCAN INFO ===== GENERAL SCANNER RADIATOR FITTER: Quantine MODEL: FTL SOLAR PULSE SEQUENCES: SSFP cine, 2D LGE segmented, 2D LGE single-shot, Pre-contrast T1 mapping, Post-contrast T1 mapping, T2 mapping, Phase contrast imaging, Fat-water imaging, Bright-blood SSFP morphology CONTRAST AGENT TYPE: Gadavist GD CONCENTRATION: 1 M VOLUME ADMINISTERED: 16 ml DOSAGE: 0.15 mmol/kg SETUP DATE OF EVENT: SCAN TYPE: Clinical PATIENT TYPE: Outpatient REASON(S) FOR SCAN: ARVD (known/suspect) REFERRING PHYSICIAN: 1) CHRISTOPH BERRY M, , BOX PRINTING MACHINE OPERATOR-SITE ACQUISITION MANAGER ATTENDING PHYSICIAN: VALERIE AUGUSTE FELLOW: Nicola Breaux NURSE: Luana Mckenna RN TECHNOLOGIST: Asher Raza ===== Patient Account [id number] CP (more content not included)... [facility] Radiology Study observation (narrative) [facility] MR Heart cine for blood flow velocity mapping W contrast IVOrdered By: Valerie Auguste on 09-25-2023 [facility] Work Phone: MRI CARDIAC WITH CONTRAST W/ VELOCITY FLOW MAP 09-25-2023 MRI CARDIAC WITH CONTRAST W/VELOCITY FLOW MAP [facility] CMR Report Name: WALLY JONES : 1955 Scan Date: 2023-09-25 13:31:38 Electronically signed by Valerie Auguste 14:54:32 VITALS == HEIGHT: 75.00 in (190.50 cm) WEIGHT: 240.00 lbs (108.86 kgs) BSA: 2.37 m^2 BP: 171 / 81 mmHg BASELINE HR: 68 BPM FINAL == Normal biventricular size and systolic function with mild, nonischemic fibrosis. No specific CMR findings of ARVC. SUMMARY == 68 yo M with HTN, family hx of ARVC. CMR for further evaluation. CARDIAC MRI LEFT VENTRICLE: There is mild basal LV hypertrophy. LV cavity size is normal. LV systolic function is normal. Quantitative LVEF 60 %. No myocardial edema/inflammation by T2 mapping. Normal [place] and ECV values. VIABILITY: Late gadolinium enhancement imaging demonstrates mild patchy, midmyocardial LGE in the basal inferior wall and RV insertion. RIGHT VENTRICLE: RV cavity size is normal. RV systolic function is normal. Quantitative RVEF 58 %. No specific CMR findings of ARVC. LEFT ATRIUM: LA cavity size is normal. RIGHT ATRIUM: RA cavity size is normal. PERICARDIUM: There is a trivial pericardial effusion. AORTIC VALVE: Peak aortic valve velocity 1.8 m/sec. There is trivial aortic regurgitation. MITRAL VALVE: There is trivial mitral regurgitation. TRICUSPID VALVE: There is trivial tricuspid regurgitation. CORE EXAM == MEASUREMENTS VOLUMETRIC ANALYSIS . -------. LV Reference RV Reference +------+ +------ + +------+----- -------+ EDV ml 173 (109-191) 167 (105-205) ml/m^2 73 (60-95) 71 (56-101) ESV ml 68 (27-72) 71 (20-80) ml/m^2 29 (14-36) 30 (11-40) CO L/min 6.78 6.28 L/min/m^2 2.86 2.65 MASS g 113 (107-183) g/m^2 48 (57-90) SV ml 104 (73-129) 97 (71-139) ml/m^2 44 (40-64) 41 (37-69) EF % 60 (58-76) 58 (55-81) '------+ +------ + +------+----- -------' CARDIAC OUTPUT HR: 65 BPM LV DIMENSIONS WALL THICKNESS - ANTEROSEPTAL: 0.8 cm WALL THICKNESS - INFEROLATERAL: 0.9 cm WALL THICKNESS - MAXIMUM: 1.3 cm LV LUIS MIGUEL: 4.9 cm LV ESD: 2.5 cm LA DIMENSIONS (LV SYSTOLE) DIAMETER: 4.2 cm AREA - 2 CHAMBER: 24 cm^2 LENGTH - 2 CHAMBER: 5.7 cm AREA - 4 CHAMBER: 27 cm^2 LENGTH - 4 CHAMBER: 6.6 cm VOLUME: 97 ml VOLUME NORMALIZED: 40.8 ml/m^2 RA DIMENSIONS (RV SYSTOLE) AREA - 4 CHAMBER: 19 cm^2 LENGTH - 4 CHAMBER: 5.7 cm EXTRACELLULAR VOLUME MEASUREMENT PRE-CONTRAST T1 MYOCARDIUM: 1000 msec PRE-CONTRAST T1 LV CAVITY: 1571 msec POST-CONTRAST T1 MYOCARDIUM: 399 msec POST-CONTRAST T1 LV CAVITY: 248 msec HEMATOCRIT: 47 % HEMATOCRIT DATE: ECV: 24 % SCAN INFO == GENERAL SCANNER RADIATOR FITTER: Quantine MODEL: FTL SOLAR PULSE SEQUENCES: SSFP cine, 2D LGE segmented, 2D LGE single-shot, Pre-contrast T1 mapping, Post-contrast T1 mapping, T2 mapping, Phase contrast imaging, Fat-water imaging, Bright-blood SSFP morphology CONTRAST AGENT TYPE: Gadavist GD CONCENTRATION: 1 M VOLUME ADMINISTERED: 16 ml DOSAGE: 0.15 mmol/kg SETUP DATE OF EVENT: SCAN TYPE: Clinical PATIENT TYPE: Outpatient REASON(S) FOR SCAN: ARVD (known/suspect) REFERRING PHYSICIAN: 1) CHRISTOPH BERRY M, , BOX PRINTING MACHINE OPERATOR-SITE ACQUISITION MANAGER ATTENDING PHYSICIAN: VALERIE AUGUSTE FELLOW: Nicola Breaux NURSE: Luana Mckenna RN TECHNOLOGIST: Asher Raza BILLJILLIAN == Patient Account [id number] CPT Codes 46894, 87002 ICD10 Codes Z82.49 Report generated by [employer], a product of [employer] Normal [facility] XR Abdomen Single viewon 1. Large colonic sto ol burden. MACRO: None Signed by: Christopher Burciaga 06/25/2023 6:21 PM Dictation workstation: [id number] [facility] Interpreted By: Christopher Link, STUDY: XR ABDOMEN 1 VIEW; 06/24/2023 8:01 am INDICATION: Signs/Symptoms:KIDNEY STONES. COMPARISON: None. ACCESSION NUMBER(S): [id number] ORDERING CLINICIAN: MANISHA GUTIERREZ FINDINGS: Large colonic stool burden. Nonobstructive bowel-gas pattern. No obvious radiopaque renal calculi. [facility] - 06/25/2023 Interpreted By: Christopher Burciaga, STUDY: XR ABDOMEN 1 VIEW; 06/24/2023 8:01 am INDICATION: Signs/Symptoms:KIDNEY STONES. COMPARISON: None. ACCESSION NUMBER(S): [id number] ORDERING CLINICIAN: MANISHA GUTIERREZ FINDINGS: Large colonic stool burden. Nonobstructive bowel-gas pattern. No obvious radiopaque renal calculi. IMPRESSION: 1. Large colonic stool burden. MACRO: None Signed by: Christopher Burciaga 06/25/2023 6:21 PM Dictation workstation: [id number] [facility] Work Phone: XR Abdomen Single viewOrdere d By: Christopher Burciaga on 06-25-2023 [facility] Work Phone: XR ABDOMEN 1 VIEWon 06-24-19 XR ABDOMEN 1 VIEW Interpreted By: Christopher Link, STUDY: XR ABDOMEN 1 VIEW; 06/24/2023 8:01 am INDICATION: Signs/Symptoms:KIDNEY STONES. COMPARISON: None. ACCESSION NUMBER(S): [id number] ORDERING CLINICIAN: MANISHA GUTIERREZ FINDINGS: Large colonic stool burden. Nonobstructive bowel-gas pattern. No obvious radiopaque renal calculi. IMPRESSION: 1. Large colonic stool burden. MACRO: None Signed by: Christopher Burciaga 06/25/2023 6:21 PM Dictation workstation: [id number] [facility] XR Abdomen Single viewon Radiology Study observation (narrative) [facility] Work Phone: ECG 12 LeadOrdered By: Maynor Patel on 09-08-2022 Atrial [facility] Work Phone: P [place] [facility] Work Phone: P-R Interval [facility] Work Phone: Q-T Interval [employer] Work Phone: Q-T Interval (corrected) [employer] Work Phone: QRS Duration [facility] Work Phone: QTC Calculation ([employer]) [facility] Work Phone: R [place] [facility] Work Phone: T Madras [employer] Work Phone: Ventricular Rate [facility] Work Phone: [facility] Work Phone: ABDOMEN AP VIEWon 04-30-2022 ABDOMEN AP VIEW Patient Name: WALLY JONES STUDY: ABDOMEN AP VIEW; 04/30/2022 7:25 am INDICATION: FLANK PAIN N20.0: Bilateral kidney stones. COMPARISON: Most recent prior is from 04/29 ACCESSION NUMBER(S): [id number] ORDERING CLINICIAN: MANISHA GUTIERREZ TECHNIQUE: 2 supine views of the abdomen and pelvis were obtained. FINDINGS: There was antq-cj-xpqqpsnj retained colonic stool and mild scattered colonic gas.. There was no abnormal small bowel dilatation. There was no gross organomegaly. Multiple stable bilateral pelvic phleboliths. There is a triangular-shaped opacity overlying the sacrum just to the right of midline in the central pelvis measuring 15 x 12 mm. This was not present previously. It overlies the distal sigmoid as well. No destructive bone lesion. Interfacet hypertrophic arthritic changes in the mid and distal lumbar spine. The extreme lung bases were not included. IMPRESSION: No calcification overlying either renal fossa. Stable bilateral pelvic phleboliths. Triangular shaped opacity overlying the lower sacrum and the distal sigmoid to the right of midline in the mid right pelvis measures 15 x 12 mm. Suspect artifact related to overlapping normal structures. A bladder stone is a less likely possibility given the location. Intestinal content is another possibility. Interfacet hypertrophic arthritic changes in the mid and distal lumbar spine. Electronically signed by: NATALI PADILLA MD [facility] IO UA (automated w/o microsc opy)on 04-30-2022 Protein (U) [Mass/Vol] Negative VL[facility]hrn[facility] [facility] Work Phone: IO UA (automated w/o microscopy) Negative EU[facility] Work Phone: IO UA (automated w/o microscopy) Normal (0.2-1.0 mg/dl) MP-Urolog y[facility] Work Phone: IO UA (automated w/o microscopy) 5.0 1 HJ-Rbdkgpk[facility] Work Phone: IO UA (automated w/o microscopy) 1.025 1 CK-Qnzenru[facility] Work Phone: IO UA (automated w/o microscopy) Clear PH-Xznyvlj[facility] Work Phone: IO UA (automated w/o microscopy) Yellow ZC-Mccbhib[facility]Qyn [facility] Work Phone: Office Visit (Urology)on Follow-up visit Diagnoses/Problems Assessed BPH without urinary obstruction (600.00) (N40.0) Nocturia (788.43) (R35.1) History of kidney stones (V13.01) (Z87.442) Former smoker (V15.82) (Z87.891) Patient Discussion/Summary All available PSA values reviewed, Options discussed. Questions answered. Diet changes for prostate health discussed and educational information given. Pros/Cons of prostate health supplements discussed. Treatment options for LUTS reviewed Discussed timed voiding. Discussed fluid and caffeine intake Treatment options for ED reviewed. KUB reviewed Stone prevention discussed. Diet reviewed. Discussed fluid intake TheraLith given F/U 1 year with KUB and PSA Chief Complaint Yearly w/ KUB AND PSA History of Present IllnessPatient has hx of elevated PSA. Most recent PSA was 1.56 on 04/08. Prior PSA was 1.55 on 03/2021. Prior PSA was 2.01 on 10/2020. Prior PSA was 4.29 on 04/2020. Pt had 1 negative bx done 07/08. No fhx of prostate cancer. Patient also has hx of kidney stones. No recent sx...Denies flank pain. Denies N/V and F/C..Chronic BPH sx are mild and stable. Denies urgency and frequency. some hesitancy pt states this has gotten better...Denies dysuria..Denies hematuria. . Nocturia 1-2x...Pt is using theralith XR..ED is mild and not an issue Review of Systems Constitutional: No fever, No chills. Eye: glasses Ear/Nose/Mouth/Throat: Negative. Respiratory: No shortness of breath, No cough. Cardiovascular: No chest pain, No peripheral edema. Gastrointestinal: No nausea, Genitourinary: Negative except as documented in history of present illness. Hematology/Lymphatics: Patient denies being on blood thinners.. Endocrine: Negative. Immunologic: Not immunocompromised. Musculoskeletal: Negative Integumentary: Negative. Neurologic: Alert and oriented X4. Psychiatric: Negative. 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) Hematuria (599.70) (R31.9) History of kidney stones (V13.01) (Z87.442) Nocturia (788.43) (R35.1) Penile irritation (607.89) (N48.89) Surgical History Problems History of Colonic polypectomy History of Colonoscopy History of Cystoscopy History of Hemorrhoidectomy History of Tonsillectomy with adenoidectomy History of Ureteral stent placement Family History Mother Family history of cardiac disorder (V17.49) (Z82.49) Family history of diabetes mellitus (V18.0) (Z83.3) Family history of hyperlipidemia (V18.19) (Z83.438) Family history of hypertension (V17.49) (Z82.49) Father Family history of cardiac disorder (V17.49) (Z82.49) Family history of hyperlipidemia (V18.19) (Z83.438) Family history of hypertension (V17.49) (Z82.49) Social History Problems Former smoker (V15.82) (Z87.891) Allergies Medication Penicillins Allergy; Hives; Rash; Recorded By: Alison Coelho; 2019 3:10:57 PM Additional reactions - allergy cephalexin Recorded By: Ratna Howell; 06/08/2019 3:06:17 PM Current Meds Medication NameInstruction Albuterol Sulfate HFA 108 (90 Base) MCG/ACT Inhalation Aerosol Solution Atorvastatin Calcium TABS Lisinopril TABS TheraLith XR Oral Tablet Vitals Vital Signs Recorded: [id number] 07:24AM Heart Rate64 Aeuwxhts297 Oebeaboly91 Msgqms915 lb 2 oz BMI Obbdphhrql99.74 kg/m2 BSA Calculated2.38 Tobacco Useb) No PHQ-2 #1. Over the last 2 weeks have you felt down, depressed or hopeless? (If yes, answer PHQ-9 below)No PHQ-2 #2. Over the last 2 weeks have you felt little interest or pleasure in doing things? (If yes, answer PHQ-9 below)No Falls Screening (Age 18+)a) No falls within the last year Physical Exam A/O x 3 in No apparent distress Constitutional: General appearance normal Respiratory: Respiratory effort is normal Gastrointestinal:Abdomen is not tender Genitourinary: Kidneys: Not palpable Bilaterally Bladder: Not palpable or tender Scrotum: No mass. No Hydrocele Epididymis: No spermatocele. Not tender Testicles: no mass. WNL Urethra: No Discharge Penis: WNL...No lesions. circumcised Prostate: Symmetric. No Nodules. smooth Seminal Vesicles: No mass Sphincter Tone: normal Signatures Electronically signed by : Manisha Gutierrez II, MD; Apr 30 2022 7:54AM EST (Author) Normal [facility] Radiologyon 04-30-2022 XR Abdomen AP Please click on the link to view the study images Normal RE-Vhprrim-Kjq land Work Phone: XR Abdomen AP Normal MP-Urology- Hardeep hland HC 232 DO Work Phone: Tobacco Screening.on 022 Adult depression screening assessment No KS-Uqszhet-Mme land Work Phone: Fall risk assessment a) No falls within the last year GR-Uuqppyu-Sgx land Work Phone: Tobacco use status [facility] b) No RV-Vyqdzvm-Btp land Work Phone: Established Visit (Orthopaed ic Surgery)on 03-04-2022 Established Visit (Orthopaedic Surgery) Diagnoses/Problems Assessed Deformity of nail bed (703.9) (L60.8) Patient Discussion/Summary By signing my name below, I, Lauri Jernigan, attest that this documentation has been prepared under the direction and in the presence of Dr. Micky Simon. All medical record entries made by the Lauri were at my direction and personally dictated by me. I have reviewed the chart and agree that the record accurately reflects my personal performance of the history, physical exam, discussion and plan. Provider Impressions Assessment- nail deformity with cyst Plan-patient does have a small cyst at the base of the nail near the paronychia and that is irritated with a scant amount of drainage. This been present for a long period of time it gets worse if he irritates the finger or hits it against something it is caused a moderate nail deformity. We did discuss excision of the cyst debridement of the nailbed removal of the nail plate. Because my current work situation I did discuss a referral to a colleague patient was desirous to proceed with this we will plan for referral. This note has been created with voice recognition software. Please be aware that there may be grammatical or contextual errors due to the use of the software. Chief Complaint Est patient) returning for re-evaluation of the right index finger distal tip, nail deformity with possible cyst, drainage lately, arthritic deformity of the IPJ of the digit. Denies any signs of infection. History of Present Illness Patient is a pleasant 66-year-old male presenting today for follow up with regards to his Heberden's nodules of bilateral hands. Patient reports the right index finger, at the distal tip, to present with a nail deformity. He reports an arthritic deformity at the IP joint of the digit. He reports the digit to be quite painful, noting quite significant pain with palpation. He is interested in pursuing surgical intervention as his symptoms are quite bothersome and limit him in his daily activities. Review of Systems Constitutional: no fever, no chills, not feeling tired, no recent weight gain and no recent weight loss. ENT: no nosebleeds. Cardiovascular: no chest pain. Respiratory: no shortness of breath and no cough. Gastrointestinal: no abdominal pain, no nausea, no diarrhea and no vomiting. Musculoskeletal: no arthralgias and as noted in HPI. Integumentary: no rashes and no skin wound. Neurological: no headache. Psychiatric: no depression and no sleep disturbances. Endocrine: no muscle cramps. Hematologic/Lymphatic: swollen glands, but no tendency for easy bruising. 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.1) Hematuria (599.70) (R31.9) History of kidney stones (V13.01) (Z87.442) Nocturia (788.43) (R35.1) Penile irritation (607.89) (N48.89) Surgical History Problems History of Colonic polypectomy History of Colonoscopy History of Cystoscopy History of Hemorrhoidectomy History of Tonsillectomy with adenoidectomy History of Ureteral stent placement Family History Mother Family history of cardiac disorder (V17.49) (Z82.49) Family history of diabetes mellitus (V18.0) (Z83.3) Family history of hyperlipidemia (V18.19) (Z83.438) Family history of hypertension (V17.49) (Z82.49) Father Family history of cardiac disorder (V17.49) (Z82.49) Family history of hyperlipidemia (V18.19) (Z83.438) Family history of hypertension (V17.49) (Z82.49) Social History Problems Former smoker (V15.82) (Z87.891) Allergies Medication Penicillins Allergy; Hives; Rash; Recorded By: Alison Coelho; 2019 3:10:57 PM Additional reactions - allergy cephalexin Recorded By: Ratna Howell; 06/08/2019 3:06:17 PM Current Meds Medication NameInstruction Albuterol Sulfate HFA 108 (90 Base) MCG/ACT Inhalation Aerosol Solution Atorvastatin Calcium TABS Lisinopril TABS TheraLith XR Oral Tablet Vitals Vital Signs Recorded: 04Mar2022 08:13AM Ckqzikxtizc44.6 F Height6 ft 4 in Qwiyoo599 lb BMI Krxlaqlajo06.8 kg/m2 BSA Calculated2.45 Tobacco Useb) No Falls Screening (Age 18+)a) No falls within the last year Physical Exam Alert and Oriented x3 Patient resting comfortably in the exam room. Normocephalic atraumatic extraocular movements intact mucous membranes moist warm well perfused extremities nonlabored breathing appropriate mood and affect no evidence of lymphedema. Bilateral hands Skin is intact no erythema ecchymosis lesions or abrasions full range of motion of the wrist and fingers there is some mild deformity of the index and long finger DIP joint with some ulcerations at the base of the nail plate in line with the significant Heberden's nodules that does cause a nail deformity with some angular deformity of these j (more content not included)... Normal [employer] Tobacco Screening.on 022 Fall risk assessment a) No falls within the last year [facility] 300 Work Phone: Tobacco use status CP b) No [facility] 300 Work Phone: Initial Visit (Orthopaedic S urgery)on 09-13-2021 Initial Visit (Orthopaedic Surgery) Diagnoses/Problems Assessed Heberden's nodes (with arthropathy) (375.78) (M15.1) Patient Discussion/Summary By signing my name below, I, Lauri Jernigan, attest that this documentation has been prepared under the direction and in the presence of Dr. Micky Simon. All medical record entries made by the Scribe were at my direction and personally dictated by me. I have reviewed the chart and agree that the record accurately reflects my personal performance of the history, physical exam, discussion and plan. Provider Impressions Assessment- Heberden's nodules of bilateral hands Plan-we did have a long discussion about the patient's presenting symptoms. 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 but he also has some nail plate deformity with some strange ulcerations at the base of the nail plate near the eponychial fold not sure if it is spurring at the DIP joint is affecting this but we did have a long discussion about potential treatment options including nail removal debridement of the nailbed and surgical excision of the Heberden's nodes I did discuss with him this is going to affect his joint and these will regrow with time he may have some increased stiffness or pain in the joints but will have a slightly better cosmetic appearance for short period of time until these areas regrow he would like to consider this in the future especially because the nail plate is most bothersome area we will plan to see him back in the fall This note has been created with voice recognition software. Please be aware that there may be grammatical or contextual errors due to the use of the software. Chief Complaint PT HERE FOR HEBERDENS NODULES ASHISH HANDS. STATES THE FIRST NODULE HE NOTICED ON THE RIGHT POINTER FINGER 10 YEARS AGO. NODULES HAVE BEEN SLOWLY GETTING LARGER ON ALL OF THE FINGERS BUT FEELS THE FIRST 2 FINGERS ON THE RIGHT HAND ARE THE WORST. PAIN INCREASES WITH ACTIVITY AND IF BUMPED. DOES HAVE ISSUES WITH BLEEDING AROUND THE FINGERNAIL. DIFFICULTY BENDING FINGERS. REFERRED BY ADELITA PRIEST. History of Present Illness Patient is a pleasant 66-year-old male presenting today for evaluation of Heberden's nodules of bilateral hands as referred by Adelita Priest. Patient states he noticed the first nodule on the right second digit approximately 10 years ago. The nodules have been progressively worsening over the time as they are increasing in size and becoming more prominent. He does note the first two fingers of the right hand have been the most symptomatic recently. He reports pain that increases with activity and palpation. This condition has caused him to experience stiffness and limited range of motion, as well as weakness, of the fingers. He does have some complications with bleeding around the fingernails of first two digits of the right hand. He does have nodules on his feet and toes, but denies any significant discomfort with them at this time. With discussion of surgical intervention, patient is aware about the likelihood of the nodules returning. He does elect to proceed with scheduling for surgical intervention for the right hand as it has been the most bothersome. Review of Systems Constitutional: no fever, no chills, not feeling tired, no recent weight gain and no recent weight loss. ENT: no nosebleeds. Cardiovascular: no chest pain. Respiratory: no shortness of breath and no cough. Gastrointestinal: no abdominal pain, no nausea, no diarrhea and no vomiting. Musculoskeletal: no arthralgias and as noted in HPI. Integumentary: no rashes and no skin wound. Neurological: no headache. Psychiatric: no depression and no sleep disturbances. Endocrine: no muscle cramps. Hematologic/Lymphatic: no swollen glands and no tendency for easy bruising. All other systems have been reviewed and are negative for complaint. Active Problems Problems Bilateral kidney stones (592.0) (N20.0) BPH without urinary obstruction (600.00) (N40.0) Elevated PSA (790.93) (R97.20) Erectile dysfunction (607.84) (N52.9) Hematuria (599.70) (R31.9) History of kidney stones (V13.01) (Z87.442) Nocturia (788.43) (R35.1) Penile irritation (607.89) (N48.89) Surgical History Problems History of Colonic polypectomy History of Colonoscopy History of Cystoscopy History of Hemorrhoidectomy History of Tonsillectomy with adenoidectomy History of Ureteral stent placement Family History Mother Family history of cardiac disorder (V17.49) (Z82.49) Family history of diabetes mellitus (V18.0) (Z83.3) Family history of hyperlipidemia (V18.19) (Z83.438) Family history of hypertension (V17.49) (Z82.49) Father Family history of cardiac disorder (V17.49) (Z82.49) Family history of hyperlipidemia (V18.19) (Z83.438) Family history of hypertension (V17.49) (Z82.49) Social History Problems Former smoker (V15.82) (Z87.891) Allergies Penicillins Allergy; Hives; Rash; Recorded By: Alison Coelho; 2019 3:10:57 PM Additional (more content not included)... Normal [employer] Tobacco Screening.on 022 Fall risk assessment a) No falls within the last year [facility] 300 Work Phone: Tobacco use status CP b) No [facility] 300 Work Phone: IO UA (automated w/o microsc opy)on 04-29-2021 Protein (U) [Mass/Vol] Negative QY-Avgueou-Gyw land Work Phone: IO UA (automated w/o microscopy) Negative EW-Veemdia-Kxu [employer] Work Phone: IO UA (automated w/o microscopy) Normal (0.2-1.0 mg/dl) MP-Urolog y-[employer] Work Phone: IO UA (automated w/o microscopy) 5.0 1 PV-Pnjusnf-Dxo land Work Phone: IO UA (automated w/o microscopy) 1.030 1 MP-Nbwsrda-Gon land Work Phone: IO UA (automated w/o microscopy) Trace JQ-Txsmdnr-Xon land Work Phone: IO UA (automated w/o microscopy) Clear NU-Kfjqxbh-Kud land Work Phone: IO UA (automated w/o microscopy) Yellow TN-Cxwfqpp-Fbr land Work Phone: Radiologyon 04-29-2021 XR Abdomen AP Please click on the link to view the study images Normal BL-Nlfarmu-KuweYeka Work Phone: Tobacco Screening.on 021 Fall risk assessment a) No falls within the last year FU-Ymfouju-FkfeYeka Work Phone: Tobacco use status [facility] b) No PM-Qvgmhbw-Xmt land Work Phone: No Panel Informationon 04-19 [facility] Work Phone: [email or web address]} JR-Qozyovq-Cer land Work Phone: Coronavirus 2019 RNA by PCR, Screening Asymptomticon 04-17-2021 Coronavirus 2019 RNA by PCR, Screening Asymptomtic Not detected Normal See Below [facility] [employer] 120 Work Phone: Comment on above: SOURCE: Nasal, Nasop haryngealReference Range: Not Detected.This assay is designed to detect the N, ORF1ab and/or S genes of SARS-CoV-2 via nucleic acid amplification. A Negative (NOT DETECTED) result does not preclude 2019-nCoV infection since the adequacy of sample collection and/or low viral burden may result in presence of viral nucleic acids below the clinical sensitivity of this test method. Negative (NOT DETECTED) result should not be used as the sole basis for treatment or other patient management decisions. Rather negative results should be combined with clinical observations, patient history, and epidemiological information to make patient management decisions.Fact sheet for providers: https://www.fda.gov/media/603106/downloadFact sheet for patients: https://www.fda.gov/media/804978/downloadThis test has received FDA Emergency Use Authorization (EUA) and has been verified by [facility] ([facility]). This test is only authorized for the duration of time that circumstances exist to justify the authorization of the emergency use of in vitro diagnostic tests for the detection of SARS-CoV-2 virus and/or diagnosis of COVID-19 infection under section 564(b)(1) of the Act, 21 U.S.C. 360bbb-3(b)(1), unless the authorization is terminated or revoked sooner. [facility] is certified under CLIA-88 as qualified to perform high complexity testing. Testing is performed in the [facility] laboratories located at [address] [place] [address]. Nursing Communicationon Fitted patient's lef t foot with XL short cam boot. [facility] IO UA (automated w/o microsc opy)on 05-28-2020 Protein (U) [Mass/Vol] Negative SF-Qvyzzha-Yab hland HC 232 DO Work Phone: IO UA (automated w/o microscopy) Yellow TJ-Qhxssnb-Ret hland HC 232 DO Work Phone: IO UA (automated w/o microscopy) Clear YX-Cvukkra-Kyg hland HC 232 DO Work Phone: IO UA (automated w/o microscopy) Negative VY-Ykodpjn-Boj hland HC 232 DO Work Phone: IO UA (automated w/o microscopy) 7.0 XE-Zblsigl-Hzm hland HC 232 DO Work Phone: IO UA (automated w/o microscopy) 1.025 CS-Hwwlkqq-Khy hland HC 232 DO Work Phone: IO UA (automated w/o microscopy) Normal (0.2-1.0 mg/dl) MP-Urolog y-Hardeep hland HC 232 DO Work Phone: Otheron 05-28-2020 XR Abdomen AP Interpreted by: ARAMIS05/28/20 14:54MRN: [id number] Name: WALLY JONES STUDY:ABDOMEN AP VIEW; 05/28/2020 1:13 pm INDICATION:Kidney stones. COMPARISON:06/08/2019 ORDERING CLINICIAN:MANISHA GUTIERREZ FINDINGS:2 AP radiographs of abdomen and pelvis are available forinterpretation. Nonobstructive bowel gas pattern. Mild stool burden, particularlywithin right colon.Limited evaluation of pneumoperitoneum on supineimaging, however no gross evidence of free air is noted. No radiopaque calculi seen in the region of bilateral kidneys andureters. Few pelvic phleboliths again seen. Osseous structures demonstrate no acute bony changes. IMPRESSION:* Nonobstructive bowel gas pattern.Electronically signed by: ARAMIS 05/28/20 14:54 Normal YP-Jjiprie-Ezl hland HC 232 DO Work Phone: XR Chest 2 Viewson 9 XR Chest 2 Views Exam Date/Time: 08/13/2018 10:27 EDT Reason for Exam: lymphadenopathy, supraclavicular Report STUDY: XR Chest 2 Views; 08/13/2018 10:27 am INDICATION: lymphadenopathy, supraclavicular. COMPARISON: 07/15/2013 ACCESSION NUMBER(S): [id number] ORDERING CLINICIAN: Bev Arnold FINDINGS: PA and lateral views of the chest were obtained. No focal infiltrate, pleural effusion or pneumothorax is identified. The cardiac silhouette is within normal limits for size. Mild discogenic degenerative changes are seen throughout the thoracic spine. IMPRESSION: No focal infiltrate or pneumothorax. FINAL REPORT Dictated: 08/13/2018 11:25 am New Alvarenga MD Signed (Electronic Signature): 08/13/2018 11:25 am Signed by: New Alvarenga MD Technologist: ARLINE [facility] XR Abdomen 1 Viewon 04-12-20 18 XR Abdomen 1 View Exam Date/Time:04/12 09:29 ESTReason for Exam:Kidney stoneReportSTUDY:XR Abdomen 1 View; 04/12/2018 9:29 amINDICATION:Kidney stone.COMPARISON: 7ACCESSION NUMBER(S):[id number] ORDERING CLINICIAN:Manisha NuñezIQUE:2 AP images of the abdomen were obtained.FINDINGS:There are no obvious renal calculi. There is a moderate amount of fecal material.The bones are unremarkable.The abdomen is similar to the prior exam.IMPRESSION:No obvious renal calculi. FINAL REPORT Dictated: 04/12/2018 10:20 am Fernie Jones MDigned (Electronic Signature): 04/12/2018 10:20 amSigned by: Darlene Jones MD Technologist: JOEY [facility] XR Finger(s) Min 2 Views [place] 03-17-2018 XR Finger(s) Min 2 Views Left Exam Date/Time: 03/17/2018 15:36 EDT Reason for Exam: pain of finger of left hand Report STUDY: XR Finger(s) Min 2 Views Left; 03/17/2018 3:36 pm INDICATION: pain of finger of left hand. COMPARISON: None ACCESSION NUMBER(S): [id number] ORDERING CLINICIAN: Adelita Priest FINDINGS: Three views left hand with attention to the 4th digit demonstrate no osseous, articular, or soft tissue abnormality. IMPRESSION: Normal exam. FINAL REPORT Dictated: 03/17/2018 5:10 pm Aj Jones MD Signed (Electronic Signature): 03/17/2018 5:10 pm Signed by: Aj Jones MD Technologist: ARLINE [facility] Vital Signs Date Time Vital Sign Value Performing Clinician Facility 01-22-2024 08:36-0400 Diastolic blood pressure 79 mm[Hg] Fatoumata Ramos MD Work Phone: [facility] 01-22-2024 08:36-0400 Heart rate 67 /min Fatoumata Ramos MD Work Phone: [facility] 01-22-2024 08:36-0400 Systolic blood pressure 135 mm[Hg] Fatoumata Ramos MD Work Phone: [facility] 01-22-2024 08:27-0400 Body height 193 cm Fatoumata Ramos MD Work Phone: [facility] 01-22-2024 08:27-0400 Body mass index (BMI) [Ratio] 29.82 kg/m2 Fatoumata Ramos MD Work Phone: [facility] 01-22-2024 08:27-0400 Body weight 111.13 kg Fatoumata Ramos MD Work Phone: [facility] 06-24-2023 08:08-0500 Body mass index (BMI) [Ratio] 28.48 kg/m2 Manisha Gutierrez MD Work Phone: [facility] 06-24-2023 08:08-0500 Body weight 106.14 kg Manisha Gutierrez MD Work Phone: [facility] 06-24-2023 08:08-0500 Respiratory rate 16 /min Manisha Gutierrez MD Work Phone: [facility] 04-30-2022 07:24-0500 Body mass index (BMI) [Ratio] 28.74 kg/m2 Adelita L Hellinger Work Phone: BE-Vsbumtc-Amqrphf Work Phone: 04-30-2022 07:24-0500 Body surface area Derived from formula 2.38 m2 Adelita L Hellinger Work Phone: AA-Yzhqfyz-Maqktvc Work Phone: 04-30-2022 07:24-0500 Body weight 107.11 kg Adelita L Hellinger Work Phone: LD-Ewocrhs-Tyaatuh Work Phone: 04-30-2022 07:24-0500 Diastolic blood pressure 92 mm[Hg] Adelita L Hellinger Work Phone: YX-Gttvpra-Sfoucve Work Phone: 04-30-2022 07:24-0500 Heart rate 64 /min Adelita L Hellinger Work Phone: HP-Yhvusys-Scshxzm Work Phone: 04-30-2022 07:24-0500 Systolic blood pressure 136 mm[Hg] Adelita L Hellinger Work Phone: RQ-Ojqyjdh-Dettwwo Work Phone: 03-04-2022 08:13-0400 Body height 193.04 cm Adelita L Hellinger Work Phone: [facility] 300 Work Phone: 03-04-2022 08:13-0400 Body mass index (BMI) [Ratio] 30.8 kg/m2 Adelita L Hellinger Work Phone: [facility] 300 Work Phone: 03-04-2022 08:13-0400 Body surface area Derived from formula 2.45 m2 Adelita L Hellinger Work Phone: [facility] 300 Work Phone: 03-04-2022 08:13-0400 Body temperature 97.6 [degF] Adelita L Hellinger Work Phone: [facility] 300 Work Phone: 03-04-2022 08:13-0400 Body weight 114.76 kg Adelita L Hellinger Work Phone: [facility] 300 Work Phone: 09-13-2021 10:11-0400 Body height 193.04 cm Adelita L Riclinger Work Phone: [facility] 300 Work Phone: 09-13-2021 10:11-0400 Body mass index (BMI) [Ratio] 30.8 kg/m2 Adelita L Hellinger Work Phone: [facility] 300 Work Phone: 09-13-2021 10:11-0400 Body surface area Derived from formula 2.45 m2 Adelita L Hellinger Work Phone: [facility] 300 Work Phone: 09-13-2021 10:11-0400 Body temperature 98.7 [degF] Adelita Larioslinger Work Phone: [facility] 300 Work Phone: 09-13-2021 10:11-0400 Body weight 114.76 kg Adelita Larioslinger Work Phone: [facility] 300 Work Phone: 04-29-2021 07:57-0500 Body height 193.04 cm Adelita Larioslinger Work Phone: TL-Gmgzocg-Lhceipk Work Phone: 04-29-2021 07:57-0500 Body mass index (BMI) [Ratio] 30.83 kg/m2 Adelita Larioslinger Work Phone: ZF-Mixldap-Diqvdwk Work Phone: 04-29-2021 07:57-0500 Body surface area Derived from formula 2.45 m2 Adelita Larioslinger Work Phone: LS-Ddlomeb-Ubkdqev Work Phone: 04-29-2021 07:57-0500 Body weight 114.87 kg Adelita Chenger Work Phone: IW-Wligjyp-Gnycbat Work Phone: 04-29-2021 07:57-0500 Diastolic blood pressure 77 mm[Hg] Adelita Larioslinger Work Phone: EL-Fvthkpp-Ehzaknt Work Phone: 04-29-2021 07:57-0500 Heart rate 68 /min Adelita Carter Hellinger Work Phone: GL-Edfngsw-Iavpkbb Work Phone: 04-29-2021 07:57-0500 Systolic blood pressure 144 mm[Hg] Adelita L Hellinger Work Phone: RQ-Yikhyhy-Fxlsgsf Work Phone: 04-18-2021 10:03-0500 Body height 190.5 cm Ben Abdul MD Work Phone: [facility] 04-18-2021 10:03-0500 Body mass index (BMI) [Ratio] 31.5 kg/m2 Ben Abdul MD Work Phone: [facility] 04-18-2021 10:03-0500 Body weight 114.31 kg Ben Abdul MD Work Phone: [facility] 04-18-2021 10:03-0500 Diastolic blood pressure 81 mm[Hg] eBn Abdul MD Work Phone: [facility] 04-18-2021 10:03-0500 Heart rate 78 /min Ben Abdul MD Work Phone: [facility] 04-18-2021 10:03-0500 SaO2% (BldA) [Mass fraction] 98 % Ben Abdul MD Work Phone: [facility] 04-18-2021 10:03-0500 Systolic blood pressure 143 mm[Hg] Ben Abdul MD Work Phone: [facility] 02-07-2021 08:36-0400 Body temperature 97.7 [degF] Sinan Cohen DPM Work Phone: [facility] 02-07-2021 08:36-0400 Diastolic blood pressure 89 mm[Hg] Sinan Cohen DPM Work Phone: [facility] 02-07-2021 08:36-0400 Heart rate 62 /min Sinan Cohen DPM Work Phone: [facility] 02-07-2021 08:36-0400 Systolic blood pressure 152 mm[Hg] Sinan Cohen DPM Work Phone: [facility] 01-24-2021 08:45-0400 Body height 191.8 cm Sinan Cohen DPM Work Phone: [facility] 01-24-2021 08:45-0400 Body mass index (BMI) [Ratio] 30.22 kg/m2 Sinan Cohen DPM Work Phone: [facility] 01-24-2021 08:45-0400 Body temperature 98.2 [degF] Sinan Carnesmerman DPM Work Phone: [facility] 01-24-2021 08:45-0400 Body weight 111.13 kg Sinan Cohen DPM Work Phone: [facility] 01-24-2021 08:45-0400 Diastolic blood pressure 83 mm[Hg] Sinanfrida CarnesCohen DPM Work Phone: [facility] 01-24-2021 08:45-0400 Heart rate 64 /min Sinan Carnesmerman DPM Work Phone: [facility] 01-24-2021 08:45-0400 Systolic blood pressure 155 mm[Hg] Sinan Carnesmerman DPM Work Phone: [facility] 05-28-2020 15:31-0500 BMI (Body Mass Index) 29.7 kg/m2 [id number] [facility] PROCEDURE RM TK-Loxbhhc-Jrbmxjjz HC 232 DO Work Phone: 05-28-2020 15:31-0500 Body weight 110.68 kg [id number] [facility] PROCEDURE RM GQ-Arlkqmk-Ynqcxyty HC 232 DO Work Phone: 05-28-2020 15:31-0500 BP Diastolic 75 mm[Hg] [id number] [facility] PROCEDURE RM NL-Mwojfod-Wdxkldpe HC 232 DO Work Phone: 05-28-2020 15:31-0500 BP Systolic 141 mm[Hg] [id number] [facility] PROCEDURE RM GY-Aytzqlo-Zdlragtx HC 232 DO Work Phone: 05-28-2020 15:31-0500 BSA (Body Surface Area) 2.41 m2 [id number] [facility] PROCEDURE RM PV-Pkiutbo-Rkwaklzh HC 232 DO Work Phone: 05-28-2020 15:31-0500 Height 193.04 cm [id number] [facility] PROCEDURE RM FF-Wrxphvl-Ogglolph HC 232 DO Work Phone: 05-28-2020 15:31-0500 Pulse (Heart Rate) 74 /min [id number] [facility] PROCEDURE RM QB-Caqwcsr-Qpohygci HC 232 DO Work Phone: Encounters Encounter Date Encounter Type Care Provider Facility Start: 01-22-2024 End: 01-22-2024 Office outpatient new 30 minutes Adelita Priest SITE ACQUISITION MANAGER Work Phone: [facility] Comment on above: Thrombophlebitis of superficial veins of right lower extremity Start: 01-22-2024 End: 01-22-2024 ambulatory [facility] Start: 01-20-2024 End: 01-20-2024 Transcribe Orders Adelita Priest SITE ACQUISITION MANAGER Work Phone: [facility] Comment on above: Thrombophlebitis of superficial veins of right lower extremity (Primary Dx) Start: 12-23-2023 End: 12-23-2023 ambulatory [facility] Start: 12-07-2023 End: 12-07-2023 Emergency department patient visit [facility] Start: 11-30-2023 End: 11-30-2023 ambulatory [facility] Start: 11-27-2023 End: 11-27-2023 ambulatory [facility] Start: 09-30-2023 End: 09-30-2023 ambulatory ODELL ORDAZ II Facility:[facility] Start: 09-30-2023 End: 09-30-2023 Patient encounter procedure Odell Ordaz OD Work Phone: Optometry Comment on above: Bacterial conjunctiv itis of left eye (Primary Dx) Start: 09-28-2023 End: 09-28-2023 ambulatory IMMANUEL ORDAZ Facility:[facility] Start: 09-28-2023 End: 09-28-2023 Patient encounter procedure Immanuel Ordaz OD Work Phone: Optometry Comment on above: Bacterial conjunctiv itis of left eye (Primary Dx) Start: 09-25-2023 ambulatory CHRISTOPH BERRY Facility :[facility] LOC Start: 09-25-2023 End: 09-25-2023 Subsequent hospital visit by physician Christoph Berry BOX PRINTING MACHINE OPERATOR-SITE ACQUISITION MANAGER Work Phone: Cardiovascular Imaging Lab [facility] Comment on above: Arrived Start: 08-03-2023 ambulatory RUI Bernard lity:[facility] LOC Start: 08-03-2023 End: 08-03-2023 Clinical Support Encounter Rui Mckeon MD Work Phone: [facility] Comment on above: Obesity (BMI 30.0-34 .9) (Primary Dx) Start: 08-03-2023 ambulatory RUI Bernard lity:[facility] LOC Start: 06-24-2023 End: 06-24-2023 Office outpatient visit 25 minutes Manisha Gutierrez MD Work Phone: [facility] Comment on above: BPH without urinary obstruction (Primary Dx); Bilateral kidney stones; Elevated PSA; Erectile dysfunction, unspecified erectile dysfunction type Start: 06-24-2023 End: 06-24-2023 Subsequent hospital visit by physician Lobito Bennett X-Ray [facility] Comment on above: Bilateral kidney sto santana Start: 06-24-2023 End: 06-24-2023 ambulatory MANISHA GUTIERREZ [facility] Start: 04-22-2023 End: 04-22-2023 ambulatory ODELL ORDAZ II Facility:[facility] Start: 04-22-2023 End: 04-22-2023 Patient encounter procedure Odell Ordaz OD Work Phone: Optometry Comment on above: Hypermetropia of bot h eyes (Primary Dx); Regular astigmatism of both eyes; Presbyopia; Combined forms of age-related cataract of both eyes; Vitreous floaters of both eyes Start: 09-08-2022 End: 09-09-2022 Clinical Support Adelita Priest SITE ACQUISITION MANAGER Work Phone: [facility] Comment on above: FH: arrhythmogenic r ight ventricular cardiomyopathy Start: 05-23-2022 End: 05-24-2022 ambulatory ADELITA August [facility] Start: 05-23-2022 End: 05-23-2022 [facility] Start: 05-02-2022 End: 05-02-2022 ambulatory ADELITA August [facility] Start: 05-01-2022 Chart Update Adelita freitas Work Phone: LM-Fghhkru-Mfqtlfls HC 232 DO Work Phone: Start: 04-30-2022 Office outpatient vi sit 25 minutes Adelita Priest Work Phone: [facility] Work Phone: Start: 04-30-2022 ambulatory Ms. Adelita Priest Facility:[id number] Start: 03-04-2022 Office outpatient vi sit 15 minutes Adelita Priest Work Phone: [facility] 300 Work Phone: Start: 03-04-2022 ambulatory SAPNA PRIEST Facility:[id number] Start: 09-13-2021 Office outpatient ne w 30 minutes Adelita Priest Work Phone: [facility] 300 Work Phone: Start: 09-13-2021 Patient encounter procedure Adelita Priets Work Phone: [facility] 300 Work Phone: Start: 09-13-2021 ambulatory SAPNA PRIEST Facility:[id number] Start: 04-29-2021 Chart Update Adelita freitas Work Phone: [facility] [facility] Work Phone: Start: 04-29-2021 Office outpatient vi sit 25 minutes Adelita Priest Work Phone: VQ-Iinqafp-Edakovm Work Phone: Start: 04-19-2021 COLON, Provider: Ace Clemente, Status: Pen, Time: 10:30 AM Adelita Priest Work Phone[facility] Work Phone: Start: 04-18-2021 Chart Update Adelita Raul freitas Work Phone: [facility] Work Phone: Start: 04-18-2021 End: 04-18-2021 Office outpatient new 20 minutes Adelita Priest SITE ACQUISITION MANAGER Work Phone: [facility] Comment on above: Lipoma of torso (Sophy clemente Dx); Abdominal wall mass of right flank; Lipoma of abdominal wall; Lipoma of left lower extremity Start: 03-27-2021 Transcribe Orders Mago Jason MA [facility] Comment on above: Abdominal wall mass of right flank (Primary Dx) Start: 02-07-2021 End: 02-07-2021 Office outpatient visit 10 minutes Sinan Cohen DPM Work Phone: [facility] Comment on above: Peroneal tendonitis, left (Primary Dx) Start: 01-24-2021 End: 01-24-2021 Office outpatient visit 15 minutes Adelita Priest CNP Work Phone: [facility] Comment on above: Peroneal tendonitis, left (Primary Dx); Pain in left foot Start: 01-22-2021 Chart abstracting Sinan Cohen DPM Work Phone: [facility] Start: 01-14-2021 Transcribe Orders Adelita hurtado CNP Work Phone: [facility] Comment on above: Pain in left foot (P rimary Dx) Start: 06-25-2020 Patient encounter procedure [id number] [facility] PROC[facility] RM VE-Dchdzez-Vwuxzssj HC 232 DO Work Phone: Start: 05-28-2020 Office outpatient vi sit 25 minutes Adelita Priest Work Phone: NO-Wquejgc-Zxxqgvj Work Phone: Start: 05-28-2020 Patient encounter procedure [id number] [facility] PROC[facility] RM RZ-Atzdlmm-Eigxrkyu HC 232 DO Work Phone: Start: 06-08-2019 Patient encounter procedure [id number] [facility] PROCEDURE RM MN-Xjgyxup-Igkgvahh HC 232 DO Work Phone: Start: 09-06-2018 End: 09-07-2018 Patient encounter procedure Dong Art Facility:[facility] Start: 08-23-2018 End: 08-24-2018 Patient encounter procedure Adelita Priest Facility:[facility] Start: 08-13-2018 End: 08-14-2018 Patient encounter procedure Bev Arnold Facility:[facility] Start: 04-12-2018 End: 04-13-2018 Patient encounter procedure Manisha Gutierrez Facility:[facility] Start: 03-17-2018 End: 03-18-2018 Patient encounter procedure Adelita Priest Facility:[facility] Start: 02-05-2018 End: 02-05-2018 Patient encounter procedure Micky Loaiza Facility:[facility] Procedures Date Procedure Procedure Detail Performing Clinician Start: 09-25-2023 Cardiac mri w/wo con trast & further seq Christoph Berry BOX PRINTING MACHINE OPERATOR-SITE ACQUISITION MANAGER Work Phone: Start: 09-25-2023 Blood count hematocrit Nicola Breaux MD Work Phone: Start: 06-24-2023 XR ABDOMEN 1 VIEW MANISHA GUTIERREZ Start: 06-24-2023 Radiologic exam abdo men 1 view Manisha Gutierrez MD Work Phone: Start: 09-08-2022 Ecg routine ecg w/le ast 12 lds w/i&r External Transcribed Start: 04-19-2021 End: 04-19-2021 Colonoscopy Adelita Priest Work Phone: Start: 01-24-2021 NURSING COMMUNICATIO N- RITUXAN REACTION Sinan Cohen DPM Work Phone: Start: 06-25-2020 Surgical Pathology [facility] [id number] [facility] PROC[facility] RM Colonic polypectomy [id number] [facility] PROC[facility] RM Colonoscopy [id number] [facility] PROCED[facility] RM Cystoscopy [id number] [facility] PROCED[facility] RM Hemorrhoidectomy [id number] [facility] PROCEDURE RM Insertion of uretera l stent with ureterotomy [id number] [facility] PROCEDURE RM Tonsillectomy and adenoidectomy [id number] [facility] PROCEDURE RM Plan of Treatment Date Care Activity Detail Author Start: 04-19-2031 Screening for malignant neoplasm of colon [facility] Start: 04-15-2028 Prostate Cancer Screening Discussion Prostate Cancer Screening Discussion [facility] Start: 04-15-2028 Prostate specific antigen measurement Prostate Cancer Screening Discussion [facility] Start: 03-16-2028 DTaP/Tdap/Td Vaccine s (2 - Td or Tdap) DTaP/Tdap/Td Vaccines (2 - Td or Tdap) [facility] Start: 03-16-2028 Tetanus vaccination [facility] Start: 03-16-2028 Urine microalbumin profile DTaP,Tdap,Td Vaccine (2 - Td or Tdap) [facility] Start: 01-22-2024 End: 01-22-2024 Patient encounter procedure 01/22/2024 8:30 AM EDT Office Visit [facility] [address] 3rd [place] [address] Adelita Priest, SITE ACQUISITION MANAGER [address] [place] [address] Fatoumata Ramos MD [address] [facility] [place] [address] [facility] Start: 01-17-2024 COVID-19 Vaccine ( season) COVID-19 Vaccine ( season) [facility] Start: 01-17-2024 Influenza vaccination Influenza Vacc ine (#1) [facility] Start: 12-23-2023 End: 06-24-2024 Prostate specific Ag [Mass/volume] in Serum or Plasma Prostate Specific Antigen Lab Routine Elevated PSA Expected: 12/23/2023 (Approximate), Expires: 06/24/2024 [facility] Work Phone: Comment on above: Expected: 12/23/2023 (Approximate), Expires: 06/24/2024 Start: 12-23-2023 End: 12-23-2023 Patient encounter procedure 12/23/2023 8:45 AM EDT Office Visit [place] [id number] [facility] [address] [place] [address] [place] [address] [place] [address] [id number] [facility] Start: 09-25-2023 End: 09-25-2023 Patient encounter procedure 09/25/2023 2:00 PM EDT Appointment Cardiovascular Imaging Lab [facility] [address] [place] [id number] Christoph Berry, BOX PRINTING MACHINE OPERATOR-SITE ACQUISITION MANAGER [address] [place] [address] Cardi[facility] Imaging [facility] Start: 06-24-2023 End: 06-24-2024 XR Abdomen Single view [facility] Service Area Work Phone: Comment on above: Expected: 06/24/2023 , Expires: 06/24/2024 Once for 1 Occurrenc es starting 06/24/2023 until 06/24/2023 Start: 06-24-2023 Subsequent hospital visit by physician 06/24/2023 7:55 AM EST Hospital Encounter [place] [id number] [facility] [address] [place] [address] Bilateral kidney stones [facility] Comment on above: Bilateral kidney sto santana Start: 05-18-2023 Advance Directive Discussion Advance Directive Discussion [facility] Start: 05-18-2023 Behavioral Health Screening Behavioral Health Screening [facility] Start: 01-16-2023 Covid-19 Vaccine ( season) Covid-19 Vaccine () [facility] Start: 05-18-2022 Advance Directive Discussion Advance Directive Discussion [facility] Start: 05-18-2022 Depression Assessment Depression Ass essment [facility] Start: 04-30-2022 FUV, Provider: Manisha Gutierrez II, Status: Pen, Time: 7:30 AM FUV, Provider: Manisha Gutierrez II, Status: Pen, Time: 7:30 AM QF-Lbttzbq-Dnidulm Work Phone: Start: 04-19-2022 Screening for malignant neoplasm of colon [facility] Start: 03-04-2022 FUV, Provider: Micky Simon, Status: Pen, Time: 8:00 AM FUV, Provider: Micky Simon, Status: Pen, Time: 8:00 AM [facility] 300 Work Phone: Start: 08-21-2021 End: 08-21-2021 Patient encounter procedure 08/21/2021 Office Visit General Surgery [facility], Ben Ramirez MD [address] [place] [address] [facility] Start: 2021 Abdominal aortic aneurysm screening [facility] Start: 2021 Fall risk assessment Falls Risk Asse ssment [facility] Start: 05-04-2021 COVID-19 Vaccine (3 - Booster for Pfizer series) COVID-19 Vaccine (3 - Booster for Pfizer series) [facility] Start: 04-29-2021 FUV, Provider: Manisha Gutierrez II, Status: Pen, Time: 7:45 AM FUV, Provider: Manisha Gutierrez II, Status: Pen, Time: 7:45 AM [facility] Work Phone: Start: 04-18-2021 End: 04-18-2021 Patient encounter procedure 04/18/2021 Office Visit General Surgery Adelita Priest, SITE ACQUISITION MANAGER [address] [place] [address] Ben Abdul MD [address] [address] [facility] Start: 02-07-2021 End: 02-07-2021 Patient encounter procedure 02/07/2021 Office Visit Podiatry Sinan Cohen DPM [address] [place] [address] [facility] Start: 01-24-2021 End: 01-24-2021 Patient encounter procedure 01/24/2021 Office Visit Podiatry Adelita Priest, SITE ACQUISITION MANAGER [address] [place] [address] Sinan Cohen DPM [address] [place] [address] [facility] Start: 01-16-2021 Influenza vaccination Sequenti al Influenza Vaccine (#1) [facility] Start: 12-28-2020 COVID-19 Vaccine (3 - Booster for Pfizer series) COVID-19 Vaccine (3 - Booster for Pfizer series) [facility] Start: 06-25-2020 Surgical Pathology [facility] 232 DO Work Phone: Start: 2016 RSV Vaccine (1 - 1-dose 60+ series) RSV Vaccine (1 - 1-dose 60+ series) [facility] Start: 2006 Administration of herpes zoster vaccine Zoster Vaccines (1 of 2) [facility] Start: 2006 Prostate specific antigen measurement PROSTATE CANCER SCREENING DISCUSSION [facility] Start: 01-08-2007 Screening for malignant neoplasm of colon [facility] Start: 2001 Cologuard (FIT-DNA) Cologuard (FIT-D NA) [facility] Start: 2001 Colonoscopy Colonoscopy [facility] Start: 2001 Colorectal Cancer Screening Colorectal Cancer Screening [facility] Start: [address] Colonography [facility] Start: 2001 Diabetes Screening Diabetes Screenin g [facility] Start: 2001 Fecal Occult Blood Fecal Occult Bloo d [facility] Start: 2001 Screening for malignant neoplasm of colon [facility] Start: 2001 Sigmoidoscopy Sigmoidoscopy [facility] Start: 1996 Lipid panel LIPID SCREENING [facility] Start: 1991 Lipid 1996 panel - Serum or Plasma Lipid Screening [facility] Start: 1991 Lipid panel Lipid Screening [facility] Start: 1974 Diabetes mellitus screening Diabetes Screening [facility] Start: 1974 Hepatitis C screening Hepatitis C Sc [facility] Start: 1974 Hepatitis C Screening Hepatitis C Sc [facility] Start: 1971 HIV screening HIV Screening [facility] Start: 1968 COVID-19 Vaccine (1) COVID-19 Vaccin e (1) [facility] Start: 1968 Depression screening using PHQ-9 (Patient Health Questionnaire 9) score [facility] Start: 1959 History and physical examination, annual for health maintenance Wellness Visit [facility] Start: 1956 Abdominal aortic aneurysm screening Abdominal Aortic Ultrasound [facility] Start: 1956 Hepatitis C screening HEPATITI S C VIRUS SCREENING [facility] Start: 1956 Lipid panel Lipid Panel [facility] Start: 1956 Prostate specific antigen measurement PSA Level [facility] Start: 1956 Screening for malignant neoplasm of colon [facility] Start: 1956 Tetanus vaccination Tetanus: Every 1 0yrs [facility] Start: 1956 Yearly Adult Physical Yearly [facility] 232 DO Work Phone: NEGATED: Highlighted row has been ruled out! Planned Goals not documented MM-Fbyersb-Rjrvpbyt HC 232 DO Work Phone: Immunizations Immunization Date Immunization Notes Care Provider Fa [facility] 03-24-2023 influenza virus vacc ine, unspecified formulation Fatoumata Ramos MD Work Phone: [facility] 03-03-2022 influenza virus vacc ine, unspecified formulation Adelita Priest [employer] Work Phone: [facility] Payers Date Payer Category Payer Private Health Insurance AETNA A ETNA CHOICE POS/POSII/PREMIER CARE/PREMIER CARE PLUS [id number] 2020-Present [phone] [address] [place] [address] [id number] 2019 Unknown 2019 Unknown [id number] 2017 Private Health Insurance 2017 Private Health Insurance [id number] 1963 Unknown [id number] 2.16.840.1.178027.3.579.2.7 17 1963 Unknown [id number] 2.16.840.1.179553.3.579.2.7 17 1963 Unknown [id number] 2.16.840.1.831701.3.579.2.7 1956 Unknown [id number] 2.16.840.1.367066.3.579.2.7 17 1956 Unknown [id number] 2.16.840.1.221237.3.579.2.7 17 1956 Unknown [id number] 2.16.840.1.311742.3.579.2.7 1956 Unknown [id number] 2.16.840.1.999437.3.579.2.7 1956 Unknown [id number] 2.16.840.1.949061.3.579.2.7 1956 Unknown [id number] 2.16.840.1.576896.3.579.2.1 069 1956 Unknown [id number] 2.16.840.1.885625.3.579.2.9 02 1956 Unknown [id number] 2.16.840.1.743295.3.579.2.3 56 1956 Unknown [id number] 2.16.840.1.061639.3.579.2.3 56 1956 Unknown [id number] 2.16.840.1.394263.3.579.2.3 56 1956 Unknown [id number] 2.16.840.1.176028.3.579.2.9 03 1956 Unknown [id number] 2.16.840.1.329677.3.579.2.9 03 1956 Unknown [id number] 2.16.840.1.191617.3.579.2.9 03 1956 Unknown [id number] 2.16.840.1.331616.3.579.2.5 94 1956 Unknown [id number] 2.16.840.1.869319.3.579.2.5 94 1956 Unknown [id number] 2.16.840.1.776779.3.579.2.5 94 1956 Unknown [id number] 2.16.840.1.675928.3.579.2.1 245 1956 Unknown [id number] 2.16.840.1.040044.3.579.2.1 245 1956 Unknown [id number] 2.16.840.1.031467.3.579.2.1 243 1956 Unknown [id number] 2.16.840.1.347637.3.579.2.1 243 1956 Unknown [id number] 2.16.840.1.926116.3.579.2.1 244 1956 Unknown [id number] 2.16.840.1.067248.3.579.2.1 244 1956 Unknown [id number] 2.16.840.1.586025.3.579.2.9 03 Social History Date Type Detail Facility Tobacco smoking status INIS Tobacco smoking consumption unknown [facility] Start: 1955 Sex Assigned At Not on file [facility] Start: 01-24-2021 End: 01-22-2024 Tobacco smoking status NHIS Ex-smoker [facility] Start: 01-24-2021 End: 01-22-2024 Tobacco use and exposure Smokeless tobacco non-user [facility] Start: 01-24-2021 End: 01-22-2024 Alcohol intake Lifetime non-drinker (finding) [facility] Start: 08-23-2022 End: 06-24-2023 Exposure to SARS-CoV-2 (event) Not sure [facility] Start: 05-23-2022 End: 01-21-2024 Former smoker Former smoker -[facility] [address] Work Phone: Start: 05-18-1974 End: 05-18-1999 History of tobacco use Current smoker [facility] Start: 05-23-2022 End: 01-21-2024 Tobacco use panel [facility] Start: 07-07-2015 Tobacco smoking status INIS Never smoked tobacco [facility] Start: 04-22-2023 End: 09-30-2023 Alcohol intake Current non-drinker of alcohol (finding) [facility] National Score (1-100), lower number is lower risk Not on file [facility] Start: 05-18-1974 End: 05-18-1999 History of tobacco use Cigarette Smoker [facility] Work Phone: History of tobacco use Pipe Smoker [facility] Work Phone: History of tobacco use Cigar Smoker [facility] Work Phone: Start: 06-19-2023 Alcohol intake Ex-drinker (finding) [facility] Work Phone: Start: 07-20-2023 Gender identity Identifies as male gender (finding) [facility] Start: 07-20-2023 Sexual orientation Heterosexual (colleen christianson) [facility] Start: 01-22-2024 Tobacco Comment When did smoke was only now and then. Not daily. [facility] NEGATED: Highlighted row - - XU-Rosimgj-Nqsfxkbq HC 232 DO Work Phone: Functional Status Date Assessment Result Facility NEGATED: Highlighted row Functional performance Functional status health issues are not documented Disease [facility] 232 DO Work Phone: Mental Status Date Assessment Result Facility NEGATED: Highlighted row Cognitive function [Interpretation] Cognitive status health issues are not documented Disease [facility] 232 DO Work Phone: Clinical Notes 09-14-2011 to 01-22-2024 Fatoumata Ramos MD - 01/22/2024 8:45 AM EDTPatient InstructionsPatient InstructionsCoOdell wills II, OD - 09/30/2023 10:59 AM EDTPatient InstructionsManisha Gutierrez MD - 06/24/2023 8:00 AM EST Note Date & Type Note Facility 01-22-2024 Note OFFICE CONSULTATION NOTE [facility] [address] [facility] [address] [facility] [id number] Physicians: Adelita Priest CNP (Family); Adelita Priest CNP (Referring) Assessment & Plan: 68 yo M who presents in consultation for superficial thrombophlebitis of the right mid-calf GSV Similar episode 2-3 years ago, more recent episode mid-November. No obvious provoking factor. Palpable pedal pulses. No obvious varicosity on exam. Superficial thrombophlebitis, even with a recurrence, is not typically treated surgically. Medical management would be NSAIDs, warm compresses, and elevation. Anticoagulation is reserved for long segment superficial venous thrombosis, typically greater than 15 cm or near the deep system - none of this appears to be true based on the report to which I have access. I did insurance counselor the patient that I can remove the greater saphenous vein surgically - would not ablate in the context of thrombus. There is no literature to support this, and the likelihood of failed efficacy/recurrence is high. He expressed understanding at this time and does not wish to proceed with this. With that in mind, he can follow-up with me on an as needed basis. -PRN followup Subjective: HPI: 68 yo M who presents in consultation for superficial thrombophlebitis of the right mid-calf GSV Presented mid-November to ED with pain in right calf. Similar to episode 2-3 years ago, when he was diagnosed with SVT. US at the ED revealed SVT of the R GSV, mid-calf only. 2 episodes of SVT as above, no h/o DVT. No FMH of clotting issues. No obvious provoking factors - trauma, immobility. Outpatient Medications as of 01/22/2024 Medication Sig albuterol 90 mcg/actuation inhaler Inhale 1 (one) puff every 6 (six) hours as needed for wheezing . atorvastatin (LIPITOR) 10 MG tablet Take 1 (one) tablet (10 mg total) by mouth daily . cetirizine (ZYRTEC) 10 MG tablet Take by mouth daily . fluticasone propionate (FLONASE) 50 mcg/actuation nasal spray Instill 2 (two) sprays into each nostril daily . hydroCHLOROthiazide (HYDRODIURIL) 25 MG tablet Take 1 (one) tablet (25 mg total) by mouth daily . LISINOPRIL ORAL Take 20 mg by mouth once daily . sildenafiL (VIAGRA) 100 MG tablet Take 1 (one) tablet (100 mg total) by mouth every night at bedtime . vit B6-mag cit,oxid-potass cit (Theralith XR) 3.75-45-45-49.5 mg TbER Take by mouth 2 (two) times a day . vitB6/mag cit,ox/potassium cit (THERALITH XR ORAL) Take by mouth . Histories: Past Medical History: Diagnosis Date Arthritis Asthma, intermittent Chicken pox Hay fever History of blood clots right leg Hyperlipidemia Hypertension Kidney stones Nephrolithiasis Past Surgical History: Procedure Laterality Date CT COLONOSCOPY 06/22/2022 CT COLONOSCOPY EXCISION LESION UPPER EXTREMITY Right 05/02/2022 Procedure: EXCISION CYST OF RIGHT INDEX FINGER; Surgeon: Virginia Simmons DO; [place] [facility] [place] Service: Plastics HEMORRHOID SURGERY KIDNEY STONE SURGERY TONSILLECTOMY AND ADENOIDECTOMY Family History Problem Relation Age of Onset Diabetes Mother Heart disease Mother Other (disorder of gallbladder) Mother Other (environmental allergy) Mother Heart disease Father Other (cardiac arrhythmia) Sister Social History Tobacco Use Smoking status: Former Current packs/day: 0.00 Average packs/day: 0.5 packs/day for 25.0 years (12.5 ttl pk-yrs) Types: Cigarettes, Pipe, Cigars Start date: 1974 Quit date: 2000 Years since quittin.6 Smokeless tobacco: Never Tobacco comments: When did smoke was only now and then. Not daily. Substance Use Topics Alcohol use: Never Drug use: Never Outpatient Medications as of 01/22/2024 Medication Sig albuterol 90 mcg/actuation inhaler Inhale 1 (one) puff every 6 (six) hours as needed for wheezing . atorvastatin (LIPITOR) 10 MG tablet Take 1 (one) tablet (10 mg total) by mouth daily . cetirizine (ZYRTEC) 10 MG tablet Take by mouth daily . fluticasone propionate (FLONASE) 50 mcg/actuation nasal spray Instill 2 (two) sprays into each nostril daily . hydroCHLOROthiazide (HYDRODIURIL) 25 MG tablet Take 1 (one) tablet (25 mg total) by mouth daily . LISINOPRIL ORAL Take 20 mg by mouth once daily . sildenafiL (VIAGRA) 100 MG tablet Take 1 (one) tablet (100 mg total) by mouth every night at bedtime . vit B6-mag cit,oxid-potass cit (Theralith XR) 3.75-45-45-49.5 mg TbER Take by mouth 2 (two) times a day . vitB6/mag cit,ox/potassium cit (THERALITH XR ORAL) Take by mouth . Allergies Allergen Reactions Cephalexin Unknown Penicillins Hives and Rash Overview of Problems Addressed: No problems updated. Objective: Physical Exam Vitals: Vitals: 01/22/24 0827 01/22/24 0836 BP: 122/72 135/79 BP Location: Right arm Left arm Patient Position: Sitting Sitting (more content not included)... [facility] 01-22-2024 History of Present illness Narrative OFFICE CONSULTATION NOTE [facility] [address]) [facility] [address] [facility] [id number] Physicians: Adelita Priest CNP (Family); Adelita Priest CNP (Referring) Assessment & Plan: 68 yo M who presents in consultation for superficial thrombophlebitis of the right mid-calf GSV Similar episode 2-3 years ago, more recent episode mid-November. No obvious provoking factor. Palpable pedal pulses. No obvious varicosity on exam. Superficial thrombophlebitis, even with a recurrence, is not typically treated surgically. Medical management would be NSAIDs, warm compresses, and elevation. Anticoagulation is reserved for long segment superficial venous thrombosis, typically greater than 15 cm or near the deep system - none of this appears to be true based on the report to which I have access. I did insurance counselor the patient that I can remove the greater saphenous vein surgically - would not ablate in the context of thrombus. There is no literature to support this, and the likelihood of failed efficacy/recurrence is high. He expressed understanding at this time and does not wish to proceed with this. With that in mind, he can follow-up with me on an as needed basis. -PRN followup Subjective: HPI: 68 yo M who presents in consultation for superficial thrombophlebitis of the right mid-calf GSV Presented mid-November to ED with pain in right calf. Similar to episode 2-3 years ago, when he was diagnosed with SVT. US at the ED revealed SVT of the R GSV, mid-calf only. 2 episodes of SVT as above, no h/o DVT. No FMH of clotting issues. No obvious provoking factors - trauma, immobility. Outpatient Medications as of 01/22/2024 Medication Sig albuterol 90 mcg/actuation inhaler Inhale 1 (one) puff every 6 (six) hours as needed for wheezing . atorvastatin (LIPITOR) 10 MG tablet Take 1 (one) tablet (10 mg total) by mouth daily . cetirizine (ZYRTEC) 10 MG tablet Take by mouth daily . fluticasone propionate (FLONASE) 50 mcg/actuation nasal spray Instill 2 (two) sprays into each nostril daily . hydroCHLOROthiazide (HYDRODIURIL) 25 MG tablet Take 1 (one) tablet (25 mg total) by mouth daily . LISINOPRIL ORAL Take 20 mg by mouth once daily . sildenafiL (VIAGRA) 100 MG tablet Take 1 (one) tablet (100 mg total) by mouth every night at bedtime . vit B6-mag cit,oxid-potass cit (Theralith XR) 3.75-45-45-49.5 mg TbER Take by mouth 2 (two) times a day . vitB6/mag cit,ox/potassium cit (THERALITH XR ORAL) Take by mouth . Histories: Past Medical History: Diagnosis Date Arthritis Asthma, intermittent Chicken pox Hay fever History of blood clots right leg Hyperlipidemia Hypertension Kidney stones Nephrolithiasis Past Surgical History: Procedure Laterality Date CT COLONOSCOPY 06/22/2022 CT COLONOSCOPY EXCISION LESION UPPER EXTREMITY Right 05/02/2022 Procedure: EXCISION CYST OF RIGHT INDEX FINGER; Surgeon: Virginia Simmons DO; [place] [facility] [place] Service: Plastics HEMORRHOID SURGERY KIDNEY STONE SURGERY TONSILLECTOMY AND ADENOIDECTOMY Family History Problem Relation Age of Onset Diabetes Mother Heart disease Mother Other (disorder of gallbladder) Mother Other (environmental allergy) Mother Heart disease Father Other (cardiac arrhythmia) Sister Social History Tobacco Use Smoking status: Former Current packs/day: 0.00 Average packs/day: 0.5 packs/day for 25.0 years (12.5 ttl pk-yrs) Types: Cigarettes, Pipe, Cigars Start date: 1974 Quit date: 2000 Years since quittin.6 Smokeless tobacco: Never Tobacco comments: When did smoke was only now and then. Not daily. Substance Use Topics Alcohol use: Never Drug use: Never Outpatient Medications as of 01/22/2024 Medication Sig albuterol 90 mcg/actuation inhaler Inhale 1 (one) puff every 6 (six) hours as needed for wheezing . atorvastatin (LIPITOR) 10 MG tablet Take 1 (one) tablet (10 mg total) by mouth daily . cetirizine (ZYRTEC) 10 MG tablet Take by mouth daily . fluticasone propionate (FLONASE) 50 mcg/actuation nasal spray Instill 2 (two) sprays into each nostril daily . hydroCHLOROthiazide (HYDRODIURIL) 25 MG tablet Take 1 (one) tablet (25 mg total) by mouth daily . LISINOPRIL ORAL Take 20 mg by mouth once daily . sildenafiL (VIAGRA) 100 MG tablet Take 1 (one) tablet (100 mg total) by mouth every night at bedtime . vit B6-mag cit,oxid-potass cit (Theralith XR) 3.75-45-45-49.5 mg TbER Take by mouth 2 (two) times a day . vitB6/mag cit,ox/potassium cit (THERALITH XR ORAL) Take by mouth . Allergies Allergen Reactions Cephalexin Unknown Penicillins Hives and Rash Overview of Problems Addressed: No problems updated. Objective: Physical Exam Vitals: Vitals: 01/22/24 0827 01/22/24 0836 BP: 122/72 135/79 BP Location: Right arm Left arm Patient Position: Sitting Sitting Pulse: 65 67 Weight: 111.1 kg (245 lb) Height: 6' 4 General: Alert, awake, no distress CV: RRR Pulm; Normal effort Skin: Warm, dry Vasc: Palpable pedal pulses bilaterally. LABS/IMAGING: US Duplex (report only): SVT 1. Thrombophlebitis of superficial veins of right lower extremity Fatoumata Ramos MD documented in this encounter [facility] 01-22-2024 Instructions Janie Real MA - 01/22/2024 8:27 AM EDT How to contact your care team: Provider: MD Dane Johns CNP Jill Bender, PA Nurse: Rosanne Ramos RN To reschedule office appointments call scheduling [phone]. In case of an emergency please call 911. When in need of refills please call the phone number listed above. Please include medication name, pharmacy name and specify 30 or 90 day supply. Please check with your pharmacy within 24 hours of your request for refill. You must follow up as directed to continue current refills. Thank you! documented in this encounter [facility] 09-30-2023 Note HNO ID: [id number] Author: ODELL ORDAZ II, OD Service: ? Author Type: MECHANICAL SERVICE REPRESENTATIVE Type: Progress Notes Filed: 09/30/2023 11:18 Note Text: Assessment and Plan H10.9 Bacterial conjunctivitis of left eye (primary encounter diagnosis) Comment: Topical irritation to use of Polytrim and inflammation bothersome. Recommend stop use of Polytrim. Start use of TobraDex suspension 1 gt both eyes four times a day x 1 week. Recheck as needed. Instruct patient to immediately report any change in condition outside of expected and discussed symptoms. I have confirmed and edited as necessary the relevant HPI, ophthalmic history, ROS, and the neuro exam findings as obtained by others. I have seen and examined Wally Jones. I have discussed the case and the management of this patient's care with the Resident/Fellow, if applicable. I also have reviewed and agree with the assessment and plan as stated above and agree with all of its relevant components. [facility] 09-30-2023 Instructions Odell Ordaz II, OD - 09/30/2023 11:18 AM EDT Assessment and Plan H10.9 Bacterial conjunctivitis of left eye (primary encounter diagnosis) Comment: Topical irritation to use of Polytrim and inflammation bothersome. Recommend stop use of Polytrim. Start use of TobraDex suspension 1 gt both eyes four times a day x 1 week. Recheck as needed. Instruct patient to immediately report any change in condition outside of expected and discussed symptoms. I have confirmed and edited as necessary the relevant HPI, ophthalmic history, ROS, and the neuro exam findings as obtained by others. I have seen and examined Wally Jones. I have discussed the case and the management of this patient's care with the Resident/Fellow, if applicable. I also have reviewed and agree with the assessment and plan as stated above and agree with all of its relevant components. documented in this encounter [facility] 09-30-2023 History of Present illness Narrative Assessment and Plan H10.9 Bacterial conjunctivitis of left eye (primary encounter diagnosis) Comment: Topical irritation to use of Polytrim and inflammation bothersome. Recommend stop use of Polytrim. Start use of TobraDex suspension 1 gt both eyes four times a day x 1 week. Recheck as needed. Instruct patient to immediately report any change in condition outside of expected and discussed symptoms. I have confirmed and edited as necessary the relevant HPI, ophthalmic history, ROS, and the neuro exam findings as obtained by others. I have seen and examined Wally Jones. I have discussed the case and the management of this patient's care with the Resident/Fellow, if applicable. I also have reviewed and agree with the assessment and plan as stated above and agree with all of its relevant components. documented in this encounter [facility] 09-28-2023 Note HNO ID: [id number] Author: IMMANUEL ORDAZ OD Service: ? Author Type: MECHANICAL SERVICE REPRESENTATIVE Type: Progress Notes Filed: 09/28/2023 13:44 Note Text: ASSESSMENT/PLAN: 1. Bacterial conjunctivitis of left eye - ICD9: 372.39, 041.9, ICD10: H10.9 Current Ophthalmic Meds trimethoprim-polymyxin (POLYTRIM) 10,000 unit- 1 mg/mL ophthalmic solution Use 1 Drop in the left eye four times daily for 7 days. Return if no improvement in the next few days. Immanuel Ordaz OD [facility] 09-28-2023 Instructions Immanuel Ordaz OD - 09/28/2023 1:43 PM EDT ASSESSMENT/PLAN: 1. Bacterial conjunctivitis of left eye - ICD9: 372.39, 041.9, ICD10: H10.9 Current Ophthalmic Meds trimethoprim-polymyxin (POLYTRIM) 10,000 unit- 1 mg/mL ophthalmic solution Use 1 Drop in the left eye four times daily for 7 days. Return if no improvement in the next few days. documented in this encounter [facility] 09-28-2023 History of Present illness Narrative ASSESSMENT/PLAN: 1. Bacterial conjunctivitis of left eye - ICD9: 372.39, 041.9, ICD10: H10.9 Current Ophthalmic Meds trimethoprim-polymyxin (POLYTRIM) 10,000 unit- 1 mg/mL ophthalmic solution Use 1 Drop in the left eye four times daily for 7 days. Return if no improvement in the next few days. Immanuel Ordaz, SAM documented in this encounter [facility] 06-24-2023 History of Present illness Narrative Subjective Patient ID: Wally Jones is a 68 y.o. male. HPI Patient has hx of elevated PSA. Most recent PSA was 2.07 on 04/09. Prior PSA was 1.56 on 04/08. Prior PSA was 1.55 on 03/2021. Prior PSA was 2.01 on 10/2020. Prior PSA was 4.29 on 04/2020. Pt had 1 negative bx done 07/08. No fhx of prostate cancer. Patient also has hx of kidney stones. No recent sx...Denies flank pain. Denies N/V and F/C..Chronic BPH sx are mild and stable. Denies urgency and frequency. some hesitancy pt states this has gotten better...Denies dysuria..Denies hematuria. . Nocturia 1-2x...Pt is using theralith XR..ED is mild but is progressing Review of Systems Constitutional: Negative for chills and fever. HENT: Negative. Eyes: Negative. Respiratory: Negative for cough and shortness of breath. Cardiovascular: Negative for chest pain and leg swelling. Gastrointestinal: Negative for nausea. Endocrine: Negative. Genitourinary: Negative for difficulty urinating. Negative except for documented in HPI Allergic/Immunologic: Negative. Neurological: Alert & oriented X 3 Hematological: Denies blood thinners Psychiatric/Behavioral: Negative. Objective Physical Exam Vitals and nursing note reviewed. Constitutional: General: He is not in acute distress. Appearance: Normal appearance. Pulmonary: Effort: Pulmonary effort is normal. Abdominal: Tenderness: There is no abdominal tenderness. Genitourinary: Comments: Kidneys non palpable bilaterally Bladder non palpable or tender Scrotum no mass, No hydrocele Epididymis- No spermatocele. Non Tender. Testicles: No mass. WNL Urethra: No discharge Penis within normal limits... No lesions. circumcised Prostate - symmetric, no nodules. BENIGN Seminal Vesicals: No mass. Sphincter tone: normal Neurological: Mental Status: He is alert. Assessment/Plan Diagnoses and all orders for this visit: BPH without urinary obstruction Bilateral kidney stones - XR abdomen 1 view; Future Elevated PSA Erectile dysfunction, unspecified erectile dysfunction type KUB reviewed Stone prevention discussed. Diet reviewed. Discussed fluid intake All available PSA values reviewed, Options discussed. Questions answered. Diet changes for prostate health discussed and educational information given. Pros/Cons of prostate health supplements discussed. Treatment options for LUTS reviewed Discussed timed voiding. Discussed fluid and caffeine intake Treatment options for ED reviewed. Sildenafil Rx given Lifestyle change to help prevent UTIs discussed. Encouraged fluid intake. F/U with PSA 5 months documented in this encounter [facility] Work Phone: 04-22-2023 Note HNO ID: [id number] Author: Odell Ordaz II, OD Service: ? 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 Update glasses as desired. AR coatings caused filming and glare on last pair of glasses. H25.813 Combined forms of age-related cataract of both eyes Comment: Mild cataract in both eyes. Well tolerated at this time. Discussed possible future affect on daily activities to watch for. Monitor as instructed. H43.393 Vitreous floaters of both eyes Comment: Vitreal floaters stable both eyes. Retinas flat and intact with no apparent retinal tear or traction. Monitor yearly. I have confirmed and edited as necessary the relevant ophthalmic history, ROS, and the neuro exam findings as obtained by others. I have seen and examined Wally Jones. I have discussed the case and the management of this patient's care with the Resident/Fellow, if applicable. I also have reviewed and agree with the assessment and plan as stated above and agree with all of its relevant components. Odell Ordaz II, OD 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 Update glasses as desired. AR coatings caused filming and glare on last pair of glasses. H25.813 Combined forms of age-related cataract of both eyes Comment: Mild cataract in both eyes. Well tolerated at this time. Discussed possible future affect on daily activities to watch for. Monitor as instructed. H43.393 Vitreous floaters of both eyes Comment: Vitreal floaters stable both eyes. Retinas flat and intact with no apparent retinal tear or traction. Monitor yearly. I have confirmed and edited as necessary the relevant ophthalmic history, ROS, and the neuro exam findings as obtained by others. I have seen and examined Wally Jones. I have discussed the case and the management of this patient's care with the Resident/Fellow, if applicable. I also have reviewed and agree with the assessment and plan as stated above and agree with all of its relevant components. 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 Update glasses as desired. AR coatings caused filming and glare on last pair of glasses. H25.813 Combined forms of age-related cataract of both eyes Comment: Mild cataract in both eyes. Well tolerated at this time. Discussed possible future affect on daily activities to watch for. Monitor as instructed. H43.393 Vitreous floaters of both eyes Comment: Vitreal floaters stable both eyes. Retinas flat and intact with no apparent retinal tear or traction. Monitor yearly. I have confirmed and edited as necessary the relevant ophthalmic history, ROS, and the neuro exam findings as obtained by others. I have seen and examined Wally Jones. I have discussed the case and the management of this patient's care with the Resident/Fellow, if applicable. I also have reviewed and agree with the assessment and plan as stated above and agree with all of its relevant components. Odell Ordaz II, OD documented in this encounter [facility] 09-08-2022 History of Present illness Narrative Pt. presents for EKG per Adelita Priest CNP. Pt. tolerates EKG w/no issues. documented in this encounter [facility] 04-08-2022 History of Present illness Narrative Patient has hx of elevated PSA. Most recent PSA was 1.56 on 04/08. Prior PSA was 1.55 on 03/2021. Prior PSA was 2.01 on 10/2020. Prior PSA was 4.29 on 04/2020. Pt had 1 negative bx done 07/08. No fhx of prostate cancer. Patient also has hx of kidney stones. No recent sx...Denies flank pain. Denies N/V and F/C..Chronic BPH sx are mild and stable. Denies urgency and frequency. some hesitancy pt states this has gotten better...Denies dysuria..Denies hematuria. . Nocturia 1-2x...Pt is using theralith XR..ED is mild and not an issue [id number] Work Phone: 04-18-2021 History of Present illness Narrative [facility] PATIENT: Wally Jones DATE / TIME: 04/18/21 12:01 PM POS: Office AGE: 65 y.o. : 1955 RACE: [1] SEX: male PCP: Adelita Priest CNP REFERRAL: Hellinger, Adelita L., SITE ACQUISITION MANAGER TOS: 1. Lipoma of torso 2. Abdominal wall mass of right flank Ambulatory referral to General Surgery 3. Lipoma of abdominal wall 4. Lipoma of left lower extremity ASSESSMENT: Lipoma of right lower quadrant right lateral abdominal wall as well as smaller lesions more centrally of the abdominal wall and left anterior thigh all of which are relatively a symptom and stable having been present for some time. He is getting some discomfort in his right lower quadrant which he believes may be coming from the lipoma. Today we have had a long conversation I cannot guarantee that the sensations he is having are coming from a lipoma as they are most frequently asymptomatic although the possibility that there at the root of some of his discomfort cannot be entirely ruled out. I have offered him a chance to have these removed. He has multiple lesions one on his left anterior thigh which is completely asymptomatic measuring about 3 cm. The right lower quadrant lateral abdominal wall lesion measures approximately 5 cm in size. Alternatively I have given options to observe these for the time being and attempt to lose a little bit of weight and bring his BMI down to see if that helps any of his discomfort. He is in favor of that plan PLAN: Follow-up with me in 4 months time to reassess his lipoma SUBJECTIVE: Patient states he began to get some discomfort that he refuses to cause pain and points to his right lower quadrant where there is a longstanding lipoma. He also points to his left anterior thigh into other areas on his abdominal wall where he has no discomfort but has lipomas. OBJECTIVE: BP 143/81 Pulse 78 Ht 6' 3 Wt 114.3 kg (252 lb) SpO2 98% BMI 31.50 kg/m Right lower quadrant has about a 5 cm palpable mass that is most consistent with benign lipoma. There are 2 other lesions in his abdominal wall consistent with lipomas. His left lower extremity has a small 3 cm lipoma that is nontender Laboratory and Additional Data Reviewed: Laboratory 04/18/21 12:01 PM Microbiology 04/18/21 12:01 PM Radiology 04/18/21 12:01 PM Medications 04/18/21 12:01 PM No results found for: WBC, HGB, HCT, MCV, PLT No results found for: GLUCOSE, CALCIUM, NA, K, CL, BUN, CREATININE No orders to display REVIEW OF SYSTEMS Pertinent positives and negatives are listed in HPI, PMSH, SH, ALL above and in Details below. See scanned patient ROS questionnaire for specific details The following systems were reviewed: [x] Const (fevers, chills, wt. loss, fatigue) [x] CV (HTN, CP, HDEZ, edema, DVT) [x] Resp (SOB, pleurisy, asthma, apnea) [x] GI (N, V, D, C, M, abd pain, appetite) [x] Musc (back pain, joint stiffness, gout) [x] Neuro (seizures, syncope, paralysis) [x] Psych (depression, anxiety) [x] Endo (hot/cold intol, polyuria[DM]) [x] Hem/Lymph (Anemia, LA, bleeding) [x] Allerg/Immun (seasonal, immuniz) [x] Eyes (diplopia, cataracts) [x] ENT/mouth (dysphagia, epistaxis) [x] (dysuria, hematuria) [x] Skin/Breast (moles, rash, lumps, nipple changes) Details: Patient's Medications New Prescriptions No medications on file Previous Medications ALBUTEROL 90 MCG/ACTUATION INHALER Inhale 1 puff every 6 (six) hours as needed for wheezing . ATORVASTATIN (LIPITOR) 10 MG TABLET Take by mouth . CETIRIZINE (ZYRTEC) 10 MG TABLET Take by mouth . FLUTICASONE PROPIONATE (FLONASE) 50 MCG/ACTUATION NASAL SPRAY Instill 2 sprays into each nostril daily . LISINOPRIL ORAL Take by mouth . VITB6/MAG CIT,OX/POTASSIUM CIT (THERALITH XR ORAL) Take by mouth . Modified Medications No medications on file Discontinued Medications No medications on file documented in this encounter [facility] 03-18-2021 History of Present illness Narrative Patient is here for 6 mo f/u for hx of elevated PSA. Most recent PSA was 1.55 on 03/2021. Prior PSA was 2.01 on 10/2020. Prior PSA was 4.29 on 04/2020. Pt had 1 negative bx done 07/08. No fhx of prostate cancer. Patient also has hx of kidney stones. No recent sx...Denies flank pain. Denies N/V and F/C..Chronic BPH sx are mild and stable. Denies urgency and frequency. some hesitancy...Denies dysuria...some hematuria since bx... Nocturia 1-2x...Pt is not taking any medication for the prostate..ED is mild and not an issue [id number]-Hoyzbds-[id number] Work Phone: 02-07-2021 History of Present illness Narrative Patient: Wally Jones Date of : 1955 (65 y.o.) PCP: Adelita Priest CNP ASSESSMENT/PLAN: Wally Jones 65 y.o. male with history of much improved peroneal tendinitis of the left ankle, forefoot valgus and rear foot varus. Plan: I recommended physical therapy to strengthen the tendon with a Thera-Band. I also told him he continue with his Naprosyn that he got for superficial thrombophlebitis of the right leg for the left foot as well. Lastly I have encouraged him to use his leveling orthotics to take the load off the left ankle tendon. Assessment & plan notes cannot be loaded without a specified hospital service. SUBJECTIVE: History Since Last Visit: Patient is a 65-year-old male comes in for follow-up of his peroneal tendinitis of his left ankle. Patient relates the prednisone the cam walker boot has helped immensely. Patient is back to his shoes and orthotics relates he is functioning well. Patient relates he was diagnosed with superficial thrombophlebitis of the right leg by his PCP in the last week and given Naprosyn which she has been using for any residual tendinitis symptoms at this point. Review of Systems: Superficial thrombophlebitis right OBJECTIVE: Physical Examination: Integument-skin is warm dry and supple bilateral Neuro-intact bilateral feet Musculoskeletal-pain and swelling along the course the peroneal tendons of the left ankle. 4 out of 5 eversion strength of left ankle. Forefoot valgus and rear foot varus of the left lower extremity. Vascular-DP and PT pulses are palpable on the left foot BP (!) 152/89 (BP Location: Right arm, Patient Position: Sitting, BP Cuff Size: Adult) Pulse 62 Temp 97.7 F (36.5 C) (Temporal) Laboratory and Additional Data Reviewed: Reviewed:[id number]} XR Foot Left 3+ Views (Standard) X-rays 3 views left foot: There is no signs of fracture of the fifth metatarsal base notes times of bone spur no signs of osteoarthritis of the fifth metatarsal base cuboid joint. Patient does have an inferior calcaneal heel spur no signs of stress fracture or tumor documented in this encounter [facility] 02-07-2021 Instructions Sinan Cohen DPM - 02/07/2021 8:47 AM EDT Pt to wear orthotics Use theraband for exercise Take Naprosyn for symptoms documented in this encounter [facility] 01-24-2021 History of Present illness Narrative Patient: Wally Jones Date of : 1955 (65 y.o.) PCP: Adelita Priest CNP ASSESSMENT/PLAN: Wally Jones 65 y.o. male with history of insertional peroneal brevis tendinitis the left foot., Nonsymptomatic plantar fasciitis with heel spur syndrome left foot. Plan: Patient was placed in a short cam walker boot for ambulation. I also placed patient on a Medrol Dosepak and told him to stop his ibuprofen. Patient to reappoint in 2 weeks if not better we may consider a cortisone shot or physical therapy. Assessment & plan notes cannot be loaded without a specified hospital service. SUBJECTIVE: History Since Last Visit: Patient is a 65-year-old male comes in the office complaining of pain along the lateral side of the fifth metatarsal base on the left foot. Patient relates this is been a gradual onset there is been no history of injury. Patient's been going on for about 2 weeks. Patient brought in his orthotics wanting to see if they were wearing out and aggravating the problem. Patient relates he tried a new pair shoes which she contributed to the symptoms so he threw them out and went back to his asics. Review of Systems: Swelling left OBJECTIVE: Physical Examination: Integument-skin is warm dry and supple in the left foot no erythema or warmth noted Neuro-intact left Musculoskeletal-patient has pain and swelling at the base the fifth metatarsal of the left foot. Patient has 5 out of 5 eversion strength. No pain on the bottom of the left heel Vascular-pulses are palpable in the left BP (!) 155/83 Pulse 64 Temp 98.2 F (36.8 C) (Infrared) Ht 6' 3.5 Wt 111.1 kg (245 lb) BMI 30.22 kg/m Laboratory and Additional Data Reviewed: Reviewed:[id number]} No image results found. documented in this encounter [facility] 04-17-2019 History of Present illness Narrative The patient presents with 1 Year F/U w/PSA and KUB...Pt. has hx of kidney stones. No recent sx...Denies flank pain. Denies N/V and F/C..Most recent PSA was 4.29 on 05/06, prior was 1.02 on 04/2019...Prior PSA was 1.41 on 03/2018. Chronic BPH sx are mild and stable. Denies urgency and frequency. Denies dysuria. Denies hematuria. 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 Patient states he noticed the first nodule on the right second digit approximately 10 years ago. The nodules have been progressively worsening over the time as they are increasing in size and becoming more prominent. He does note the first two fingers of the right hand have been the most symptomatic recently. He reports pain that increases with activity and palpation. This condition has caused him to experience stiffness and limited range of motion, as well as weakness, of the fingers. He does have some complications with bleeding around the fingernails of first two digits of the right hand. He does have nodules on his feet and toes, but denies any significant discomfort with them at this time. With discussion of surgical intervention, patient is aware about the likelihood of the nodules returning. He does elect to proceed with scheduling for surgical intervention for the right hand as it has been the most bothersome. 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 Patient states he noticed the first nodule on the right second digit approximately 10 years ago. The nodules have been progressively worsening over the time as they are increasing in size and becoming more prominent. He does note the first two fingers of the right hand have been the most symptomatic recently. He reports pain that increases with activity and palpation. This condition has caused him to experience stiffness and limited range of motion, as well as weakness, of the fingers. He does have some complications with bleeding around the fingernails of first two digits of the right hand. He does have nodules on his feet and toes, but denies any significant discomfort with them at this time. With discussion of surgical intervention, patient is aware about the likelihood of the nodules returning. He does elect to proceed with scheduling for surgical intervention for the right hand as it has been the most bothersome. [facility] 300 Work Phone: Chief complaint Narrative - Reported Est patient) returning for re-evaluation of the right index finger distal tip, nail deformity with possible cyst, drainage lately, arthritic deformity of the IPJ of the digit. Denies any signs of infection. [facility] 300 Work Phone: Evaluation note Diagnosis Pain in left foot- Primary Pain in soft tissues of limb [facility] Diagnosis Peroneal tendonitis, left- Primary Pain in left foot Pain in soft tissues of limb [facility] Diagnosis Peroneal tendonitis, left- Primary [facility] Diagnosis Abdominal wall mass of right flank- Primary [facility] Diagnosis Lipoma of torso- Primary Abdominal wall mass of right flank Lipoma of abdominal wall Lipoma of left lower extremity [facility] Diagnosis FH: arrhythmogenic right ventricular cardiomyopathy [facility] Hypermetropia of both eyes- Primary Hypermetropia Regular astigmatism of both eyes Regular astigmatism Presbyopia Combined forms of age-related cataract of both eyes Other and combined forms of senile cataract Vitreous floaters of both eyes [facility] Diagnosis BPH without urinary obstruction- Primary Bilateral kidney stones Elevated PSA Elevated prostate specific antigen (PSA) Erectile dysfunction, unspecified erectile dysfunction type Bilateral kidney stones documented in this encounter [facility] Work Phone: Evaluation note* Diagnosis Bilateral kidney stones documented in this encounter [facility] Work Phone: Evaluation note* Diagnosis Bilateral kidney stones documented in this encounter [facility] Work Phone: Evaluation note* Diagnosis Obesity (BMI 30.0-34.9)- Primary Obesity, unspecified [facility]* Diagnosis Family history of arrhythmogenic left ventricular cardiomyopathy [facility]* Diagnosis Bacterial conjunctivitis of left eye- Primary Other conjunctivitis documented in this encounter [facility] note* Diagnosis Bacterial conjunctivitis of left eye- Primary Other conjunctivitis documented in this encounter [facility] note* Diagnosis Thrombophlebitis of superficial veins of right lower extremity- Primary [facility]* Diagnosis Thrombophlebitis of superficial veins of right lower extremity [facility] NarrativePatient is a pleasant 66-year-old male presenting today for follow up with regards to his Heberden's nodules of bilateral hands. Patient reports the right index finger, at the distal tip, to present with a nail deformity. He reports an arthritic deformity at the IP joint of the digit. He reports the digit to be quite painful, noting quite significant pain with palpation. He is interested in pursuing surgical intervention as his symptoms are quite bothersome and limit him in his daily activities.[facility] 300 Work Phone: Summary Purpose Family History No Family History Records Found Mother Name Dates Details Family history of cardiac di sorder(V17.49, Z82.49) Status:Active Family history of hypertensi on(V17.49, Z82.49) Status:Active Family history of diabetes m ellitus(V18.0, Z83.3) Status:Active Family history of hyperlipid emia(V18.19, Z83.438) Status:Active Father Name Dates Details Family history of cardiac di sorder(V17.49, Z82.49) Status:Active Family history of hypertensi on(V17.49, Z82.49) Status:Active Family history of hyperlipid emia(V18.19, Z83.438) Status:Active Unknown Family Member Name Dates Details Family history of cardiac di sorder: Mother, Father(V17.49, Z82.49) Status:Active Family history of hypertensi on: Mother, Father(V17.49, Z82.49) Status:Active Family history of diabetes m ellitus: Mother(V18.0, Z83.3) Status:Active Family history of hyperlipid emia: Mother, Father(V18.19, Z83.438) Status:Active Unknown Family Member Name Dates Details Family history of cardiac di sorder: Mother, Father(V17.49, Z82.49) Status:Active Family history of hypertensi on: Mother, Father(V17.49, Z82.49) Status:Active Family history of diabetes m ellitus: Mother(V18.0, Z83.3) Status:Active Family history of hyperlipid emia: Mother, Father(V18.19, Z83.438) Status:Active Unknown Family Member Name Dates Details Family history of cardiac di sorder: Mother, Father(V17.49, Z82.49) Status:Active Family history of hypertensi on: Mother, Father(V17.49, Z82.49) Status:Active Family history of diabetes m ellitus: Mother(V18.0, Z83.3) Status:Active Family history of hyperlipid emia: Mother, Father(V18.19, Z83.438) Status:Active Unknown Family Member Name Dates Details Family history of cardiac di sorder: Mother, Father(V17.49, Z82.49) Status:Active Family history of hypertensi on: Mother, Father(V17.49, Z82.49) Status:Active Family history of diabetes m ellitus: Mother(V18.0, Z83.3) Status:Active Family history of hyperlipid emia: Mother, Father(V18.19, Z83.438) Status:Active Unknown Family Member Name Dates Details Family history of hyperlipid emia: Mother, Father(V18.19, Z83.438) Status:Active Family history of diabetes m ellitus: Mother(V18.0, Z83.3) Status:Active Family history of hypertensi on: Mother, Father(V17.49, Z82.49) Status:Active Family history of cardiac di sorder: Mother, Father(V17.49, Z82.49) Status:Active Unknown Family Member Name Dates Details Family history of cardiac di sorder: Mother, Father(V17.49, Z82.49) Status:Active Family history of hypertensi on: Mother, Father(V17.49, Z82.49) Status:Active Family history of diabetes m ellitus: Mother(V18.0, Z83.3) Status:Active Family history of hyperlipid emia: Mother, Father(V18.19, Z83.438) Status:Active Unknown Family Member Name Dates Details Family history of cardiac di sorder: Mother, Father(V17.49, Z82.49) Status:Active Family history of hypertensi on: Mother, Father(V17.49, Z82.49) Status:Active Family history of diabetes m ellitus: Mother(V18.0, Z83.3) Status:Active Family history of hyperlipid emia: Mother, Father(V18.19, Z83.438) Status:Active Unknown Family Member Name Dates Details Family history of cardiac di sorder: Mother, Father(V17.49, Z82.49) Status:Active Family history of hypertensi on: Mother, Father(V17.49, Z82.49) Status:Active Family history of diabetes m ellitus: Mother(V18.0, Z83.3) Status:Active Family history of hyperlipid emia: Mother, Father(V18.19, Z83.438) Status:Active Unknown Family Member Name Dates Details Family history of hyperlipid emia: Mother, Father(V18.19, Z83.438) Status:Active Family history of diabetes m ellitus: Mother(V18.0, Z83.3) Status:Active Family history of hypertensi on: Mother, Father(V17.49, Z82.49) Status:Active Family history of cardiac di sorder: Mother, Father(V17.49, Z82.49) Status:Active Advance Directives No Advanced Directives Records FoundDocuments on File Type Date Recorded Patient Cardiac Cath Lab Manager Expl anation Advance Directives and Livin g Will 01/14/2021 12:00 AM Documents on File Type Date Recorded Patient Cardiac Cath Lab Manager Expl anation Advance Directives and Livin g Will 01/14/2021 12:00 AM Documents on File Type Date Recorded Patient Cardiac Cath Lab Manager Expl anation Advance Directives and Living Will Documents on File Type Date Recorded Patient Cardiac Cath Lab Manager Expl anation Advance Directives and Living Will Reason for Referral Specialty Diagnoses / Procedures Referred By Contac t Referred To Contact Podiatry Diagnoses Pain in left foot Adelita Priest, SITE ACQUISITION MANAGER [address] [place] [address] [facility] [address] [place] [address] Referral ID Status Reason Start Date Expiration Date V isits Requested Visits Authorized [id number] Authorized 01/14/2021 01/14/2022 1 1 Specialty Diagnoses / Procedures Referred By Contac t Referred To Contact General Surgery Diagnoses Abdominal wall mass of right flank Adelita Priest, SITE ACQUISITION MANAGER [address] [place] [address] Ben Abdul MD [address] [address] Referral ID Status Reason Start Date Expiration Date V isits Requested Visits Authorized [id number] Authorized 03/27/2021 03/27/2022 1 1 Specialty Diagnoses / Procedures Referred By Contac t Referred To Contact Radiology Diagnoses Bilateral kidney stones Procedures XR abdomen 1 view Manisha Gutierrez MD [address] [place] [address] Referral ID Status Reason Start Date Expiration Date Visits Requested Visits Authorized [id number] Authorized Perform Procedure 06/24/2023 06/23/2024 1 1 Specialty Diagnoses / Procedures Referred By Erin chairez Referred To Contact Cardiology Diagnoses Thrombophlebitis of superficial veins of right lower extremity Adelita Priest, SITE ACQUISITION MANAGER [address] [place] [address] [facility] [address], 3rd [place] [address] Referral ID Status Reason Start Date Expiration Date V isits Requested Visits Authorized [id number] Authorized 01/20/2024 01/19/2025 1 1 Chief Complaint 1 Year F/U w/PSA and KUB6 mo w/ KUB and PSAPT HERE FOR HEBERDENS NODULES ASHISH HANDS. STATES THE FIRST NODULE HE NOTICED ON THE RIGHT POINTER FINGER 10 YEARS AGO. NODULES HAVE BEEN SLOWLY GETTING LARGER ON ALL OF THE FINGERS BUT FEELS THE FIRST2 FINGERS ON THE RIGHT HAND ARE THE WORST. PAIN INCREASES WITH ACTIVITY AND IF BUMPED. DOES HAVE ISSUES WITH BLEEDING AROUND THE FINGERNAIL. DIFFICULTY BENDING FINGERS. REFERRED BY ADELITA PRIEST.PT HERE FOR HEBERDENS NODULES ASHISH HANDS. STATES THE FIRST NODULE HE NOTICED ON THE RIGHT POINTER FINGER 10 YEARS AGO. NODULES HAVE BEEN SLOWLY GETTING LARGER ON ALL OF THE FINGERS BUT FEELS THE FIRST2 FINGERS ON THE RIGHT HAND ARE THE WORST. PAIN INCREASES WITH ACTIVITY AND IF BUMPED. DOES HAVE ISSUES WITH BLEEDING AROUND THE FINGERNAIL. DIFFICULTY BENDING FINGERS. REFERRED BY ADELITA PRIEST.Yearly w/ KUB AND PSA Medications Administered Section Active Administered Medications - up to 3 most recent administrations Medication Order MAR Action Action Date Dose Rate Site tropicamide 0.5 % 1 Drop (MYDRIACYL) 1 Drop, BOTH EYES, DIRECTED, Starting on Thu04/22/23 at 0900, Until Thu04/22/23 at 2058, Administer for dilation Given 04/22/2023 9:00 AM EST 1 Drop Additional Source Comments (unrecognized sect ion and content) No Status Records FoundNo Status Records FoundNo Status Records FoundNo Status Records FoundNo Status Records FoundNo Status Records FoundNo Status Records FoundNo Status Records FoundNo Status Records FoundNo Status Records FoundNo Status Records FoundNo Status Records FoundNo Status Records Found INFORMATION SOURCE (unrecogn ized section and content) DATE CREATED AUTHOR 04/26/2018 [facility] DATE CREATED AUTHOR AUTHOR'S ORGANIZ ATION 09/07/2018 [facility] DATE CREATED AUTHOR AUTHOR'S ORGANIZ ATION 05/07/2022 [facility] DATE CREATED AUTHOR AUTHOR'S ORGANIZ ATION 05/08/2022 [facility] DATE CREATED AUTHOR AUTHOR'S ORGANIZ ATION 05/29/2022 [facility] DATE CREATED AUTHOR AUTHOR'S ORGANIZ ATION 08/13/2022 [facility] DATE CREATED AUTHOR AUTHOR'S ORGANIZ ATION 09/10/2022 [facility] DATE CREATED AUTHOR AUTHOR'S ORGANIZ ATION 10/02/[address] [facility] DATE CREATED AUTHOR AUTHOR'S ORGANIZ ATION 10/19/2023 [facility] DATE CREATED AUTHOR AUTHOR'S ORGANIZ ATION 12/07/2023 [facility] DATE CREATED AUTHOR AUTHOR'S ORGANIZ ATION 12/09/2023 [facility] DATE CREATED AUTHOR AUTHOR'S ORGANIZ ATION 12/25/2023 [facility] DATE CREATED AUTHOR AUTHOR'S ORGANIZ ATION 01/24/2024 [facility] Reason for Visit (unrecogniz ed section and content) Reason Comments Foot Problem Top and lateral left foot pain for a month and a half. Started after he wore new pair of shoes. Stiff this morning. X-rays taken at [place] 2 weeks ago. Foot Orthotics He brought his inser ts today. Thinks he may be leaning Specialty Diagnoses / Procedures Referred By Erin chairez Referred To Contact Podiatry Diagnoses Pain in left foot Adelita Priest, SITE ACQUISITION MANAGER [address] [place] [address] [facility] [address] [place] [address] Referral ID Status Reason Start Date Expiration Date V isits Requested Visits Authorized [id number] Pending Review 01/14/2021 01/14/2022 1 1 Reason Comments Tendonitis FU left Reason Comments Consult Right flank mass Specialty Diagnoses / Procedures Referred By Contac t Referred To Contact General Surgery Diagnoses Abdominal wall mass of right flank Adelita Priest CNP [address] [place] [address] Ben Abdul MD [address] [address] Referral ID Status Reason Start Date Expiration Date Visits Re quested Visits Authorized [id number] Closed 03/27/2021 03/27/2022 1 1 Reason Comments Nurse Consult EKG per Adelita freitas CNP Specialty Diagnoses / Procedures Referred By Contac t Referred To Contact Cardiology Diagnoses FH: arrhythmogenic right ventricular cardiomyopathy Procedures ECG 12 Lead Adelita Priest CNP [address] [place] [address] Referral ID Status Reason Start Date Expiration Date Visits Re quested Visits Authorized [id number] Closed 07/17/2022 07/17/2023 1 1 Reason Comments Yearly Exam Reason Comments YEARLY W/ KUB AND PSA Specialty Diagnoses / Procedures Referred By Contac t Referred To Contact Radiology Diagnoses Bilateral kidney stones Procedures XR abdomen 1 view Manisha Gutierrez MD [address] [place] [address] Referral ID Status Reason Start Date Expiration Date Visits Requested Visits Authorized [id number] Authorized Perform Procedure 06/24/2023 06/23/2024 1 1 Reason Comments Holter Monitor Hook-up Specialty Diagnoses / Procedures Referred By Contac t Referred To Contact Diagnoses Family history of arrhythmogenic left ventricular cardiomyopathy Procedures MRI CARDIAC WITH CONTRAST W/VELOCITY FLOW MAP MRI CARDIAC VELOCITY FLOW MAPPING WITH AND WITHOUT CONTRAST NC CARDIAC MRI MORPHOLOGY & FUNCTION W/O CONTRAST NC CHG CARDIAC MRI FOR VELOCITY FLOW MAPPING Christoph Berry, BOX PRINTING MACHINE OPERATOR-SITE ACQUISITION MANAGER [address] [place] [address] Referral ID Status Reason Start Date Expiration Date Visits Re quested Visits Authorized [id number] Closed 08/03/2023 08/27/2024 1 1 Reason Comments Red Eye Left Eye Reason Comments Red Eye Both Eyes Reason Comments Evaluate Specialty Diagnoses / Procedures Referred By Contgiovanni t Referred To Contact Cardiology Diagnoses Thrombophlebitis of superficial veins of right lower extremity Adelita Priest CNP [address] [place] [address] [facility], 3rd [place] [address] Referral ID Status Reason Start Date Expiration Date Visits Re quested Visits Authorized [id number] Closed 01/20/2024 01/19/2025 1 1 Care Teams (unrecognized sec tion and content) Industrial Robotics Mechanic Relationship Specialty Start Date End Date Adelita Priest SITE ACQUISITION MANAGER [address] [place] [address] PCP - General Nurse Practitioner 01/24/21 Industrial Robotics Mechanic Relationship Specialty Start Date End Date Adelita Priest CNP [address] [place] [address] PCP - General Nurse Practitioner 01/24/21 Industrial Robotics Mechanic Relationship Specialty Start Date End Date Adelita Priest CNP [address] [place] [address] PCP - General Nurse Practitioner 01/24/21 Adelita Priest SITE ACQUISITION MANAGER [address] [place] [address] Referring Physician Nurse Practitioner 03/27/21 Industrial Robotics Mechanic Relationship Specialty Start Date End Date Adelita Priest CNP [address] [place] [address] PCP - General Nurse Practitioner 01/24/21 Adelita Priest CNP [address] [place] [address] Referring Physician Nurse Practitioner 03/27/21 Industrial Robotics Mechanic Relationship Specialty Start Date End Date Adelita Priest CNP [address] [place] [address] PCP - General Nurse Practitioner 01/24/21 Adelita Priest CNP [address] [place] [address] Referring Physician Nurse Practitioner 03/27/21 Industrial Robotics Mechanic Relationship Specialty Start Date End Date Adelita Priest APRN-SAPNA [address] [facility] [place] [address] PCP - General 05/18/19 Industrial Robotics Mechanic Relationship Specialty Start Date End Date Adelita Priest APRN-CNP [address] [facility] [place] [address] PCP - General 05/18/19 Industrial Robotics Mechanic Relationship Specialty Start Date End Date Adelita Priest APRN-SAPNA [address] [facility] [place] [address] PCP - General 05/18/19 Industrial Robotics Mechanic Relationship Specialty Start Date End Date Adelita Priest APRN-SAPNA [address] [place] [phone] PCP - General Certified Nurse Practitioner 08/03/23 Industrial Robotics Mechanic Relationship Specialty Start Date End Date Adelita Priest APRN-SAPNA [address] [phone] PCP - General Certified Nurse Practitioner 08/03/23 Industrial Robotics Mechanic Relationship Specialty Start Date End Date Fannie Priest CNP [address] [place], [place] [phone] PCP - General Family Medicine 09/28/23 Industrial Robotics Mechanic Relationship Specialty Start Date End Date Fannie Priest CNP [address] [place], [place] [phone] PCP - General Family Medicine 09/28/23 Industrial Robotics Mechanic Relationship Specialty Start Date End Date Adelita Priest CNP [address] [place], [facility] PCP - General Nurse Practitioner 01/24/21 Adelita Priest CNP [address] [place] [address] Referring Physician Nurse Practitioner 03/27/21 Industrial Robotics Mechanic Relationship Specialty Start Date End Date Adelita Priest CNP [address] [place] [address] PCP - General Nurse Practitioner 01/24/21 Adelita Priest CNP [address] [place] [address] Referring Physician Nurse Practitioner 03/27/21 Fatoumata Ramos MD [address] [place] [address] [place] [address] Surgeon Vascular Surgery 01/22/24 Source Comments (unrecognize d section and content) In the event this informatio n is protected by the Federal Confidentiality of Alcohol and Drug Abuse Patient Records regulations: The Federal rules restrict any use of the information to criminally investigate or prosecute any alcohol or drug abuse patient.[facility] the event this information is protected by the Federal Confidentiality of Alcohol and Drug Abuse Patient Records regulations: The Federal rules restrict any use of the information to criminally investigate or prosecute any alcohol or drug abuse patient.[facility] System[facility] the event this information is protected by the Federal Confidentiality of Alcohol and Drug Abuse Patient Records regulations: The Federal rules restrict any use of the information to criminally investigate or prosecute any alcohol or drug abuse patient.[facility] FOR RECORDS PERTAINING TO PATIENTS WHO ARE OR HAVE BEEN ENROLLED IN A CHEMICAL DEPENDENCY/SUBSTANCEABUSE PROGRAM, SOME INFORMATION MAY BE OMITTED. This clinical summary was aggregated from multiple sources. Caution should be exercised in using it in the provision of clinical care. This summary normalizes information from multiple sources, and as a consequence, information in this document may materially change the coding, format and clinical context of patient data. In addition, data may be omitted in some cases. CLINICAL DECISIONS SHOULD BE BASED ON THE PRIMARY CLINICAL RECORDS. [employer] [facility]. provides no warranty or guarantee of the accuracy or completeness of information in this document.
--- NOTE | 2024-02-11 16:53 | CA.SCORE ---
Calcium Scoring Date of Study:: 02/11/24 Indications Indications: Chest pain Coronary Calcium Scoring: High-resolution Computed Tomographic imaging of the chest was performed on [02/11/24 ], with particular attention paid to the coronary arteries. Images from the examination were analyzed for the presence and extent of coronary artery calcification , using coronary calcium quantification software. The patient tolerated the procedure well and there were no complications. The results of the coronary calcification analysis are provided below. Findings Coronary Artery Left Main (LM): 72.3 Left Anterior Descending (LAD): 424 Left Circumflex (LCX): 0 Right Coronary Artery (RCA): 259 Total Agatston Score: 755.3 Percentile Rankin-90% Calcium Scoring Interpretation: Different methods to categorize the overall amount of coronary plaque. Overall amount CAC SIS Visual of coronary plaque P1 Mild -100 <2 1-2 vessels with mild amount of plaque P2 Moderate 101-300 3-4 1-2 vessels with moderate amount, 3 vessels with mild amount of plaque P3 Severe 301-999 5-7 3 vessels with moderate amount, 1 vessel with severe amount of plaque P4 Extensive >1000 >8 2-3 vessels with severe amount of plaque Calcium Score: Severe: 3 vessels w/moderate amount, 1 vessel w/severe amt of plaque Conclusion: Moderate 2 vessel disease with moderate atherosclerotic plaque
== END 2024-02-11 23:59 | disposition home or self-care (01) ==
LOC: CT 07:09
PROVIDERS: PCP Nurse Practitioner Family; Referring Provider Internal Medicine Cardiovascular Disease; Visit Provider Internal Medicine Cardiovascular Disease
DX: E78.2 Mixed hyperlipidemia (principal); I25.10 Atherosclerotic heart disease of native coronary artery without angina pectoris
CPT/HCPCS: 75571; 76380

== ENCOUNTER → 2024-12-22 | Outpatient (CLI) | payer OTHER, SELFPAY ==
--- NOTE | 2024-12-22 13:15 | US_ITS ---
PROCEDURE: KIDNEY AND BLADDER 12/22/2024 REASON FOR EXAM: HX OF KIDNEY STONES TECHNIQUE: KIDNEY AND BLADDER COMPARISON: None. FINDINGS: The right kidney measures 11.8 x 4.8 x 4.2 cm. Normal right renal cortical thickness measuring 1.9 cm. The left kidney measures 11.4 x 5.1 x 6.8 cm. Normal left renal cortical thickness measuring 1.6 cm. Left renal simple cyst measuring 2.5 x 2.4 x 2.4 cm. Diffuse thickening of the wall of the bladder measuring 4 mm, probably secondary to chronic bladder outlet obstruction. The bladder measures 90 cc in its volume. Nonvisualization of the ureteral jets. Prostatomegaly measuring 53 cc in volume. US/Kidney and Bladder IMPRESSION: No evidence of hydronephrosis or calculi on either side. Left renal simple cysts. Diffuse thickening of the wall of the bladder, probably chronic bladder outlet obstruction. Prostatomegaly. [facility]
--- NOTE | 2024-12-22 13:15 | US_ITS ---
PROCEDURE: KIDNEY AND BLADDER 12/22/2024 REASON FOR EXAM: HX OF KIDNEY STONES TECHNIQUE: KIDNEY AND BLADDER COMPARISON: None. FINDINGS: The right kidney measures 11.8 x 4.8 x 4.2 cm. Normal right renal cortical thickness measuring 1.9 cm. The left kidney measures 11.4 x 5.1 x 6.8 cm. Normal left renal cortical thickness measuring 1.6 cm. Left renal simple cyst measuring 2.5 x 2.4 x 2.4 cm. Diffuse thickening of the wall of the bladder measuring 4 mm, probably secondary to chronic bladder outlet obstruction. The bladder measures 90 cc in its volume. Nonvisualization of the ureteral jets. Prostatomegaly measuring 53 cc in volume. US/Kidney and Bladder IMPRESSION: No evidence of hydronephrosis or calculi on either side. Left renal simple cysts. Diffuse thickening of the wall of the bladder, probably chronic bladder outlet obstruction. Prostatomegaly. [facility]
== END | disposition home or self-care (01) ==
LOC: US 13:13
PROVIDERS: PCP Nurse Practitioner Family
DX: N20.0 Calculus of kidney (principal)
CPT/HCPCS: 76770